=== PATIENT | female | born 2000 | race Caucasian/White ===

== ENCOUNTER → 2020-04-12 10:13 | Outpatient (CLI) | payer OTHER, BC, SELFPAY ==
[2020-04-13 07:37] LABS: Covid-19 Nasal PCR Sendout Lex NOT DETECTED
== END ==
PROVIDERS: Visit Provider Internal Medicine Adolescent Medicine
DX: Z03.818 Encounter for observation for suspected exposure to other biological agents ruled out (principal)
CPT/HCPCS: U0004

== ENCOUNTER → 2020-05-18 12:53 | Outpatient (CLI) | payer OTHER, BC, SELFPAY ==
[2020-05-18 14:26] LABS: HCG,Quantitative < 2 mIU/ml (0-5.42)
== END ==
PROVIDERS: Visit Provider Nurse Practitioner Obstetrics & Gynecology
DX: Z34.90 Encounter for supervision of normal pregnancy, unspecified, unspecified trimester (principal)
CPT/HCPCS: 36415; 84702

== ENCOUNTER → 2020-05-31 09:11 | Outpatient (CLI) | payer OTHER, BC, SELFPAY ==
[2020-05-31 10:05] LABS: HCG,Quantitative < 2 mIU/ml (0-5.42)
== END ==
PROVIDERS: Visit Provider Nurse Practitioner Obstetrics & Gynecology
DX: Z34.90 Encounter for supervision of normal pregnancy, unspecified, unspecified trimester (principal)
CPT/HCPCS: 36415; 84702

== ENCOUNTER 2020-08-13 15:59 | Emergency (ER) | payer OTHER, SELFPAY ==
[2020-08-13 16:35] VITALS: BP 162/92; PULSE 97; RESP 14; TEMP 37.2; O2SAT 97; BMI 38.7
[2020-08-13 16:43] LABS: Apearance,Urine Clear (Clear); Color,Urine Yellow (Yellow)
[2020-08-13 16:44] LABS: Bilirubin,Urine Negative (Negative); Blood, Urine Negative (Negative); Glucose,Urine (UA) Negative (Negative); Ketones,Urine Negative (Negative); Protein,Urine Negative (Negative); Specific Gravity, Urine 1.025 (1.005-1.030); UTC Leukocyte Esterase,Urine Negative (Negative); UTC Nitrate,Urine Negative (Negative); UTC Pregnancy Test, Urine Negative (Negative); Urobilinogen,Urine 1 EU/dl (0.2)
--- NOTE | 2020-08-13 16:58 | HMH.EDUTC ---
[facility] [place] Disposition Clinical Impression: Vaginal bleeding Low back pain Qualifiers: Chronicity: acute Back pain laterality: unspecified Sciatica presence: without sciatica Qualified Code(s): M54.5 - Low back pain Disposition: Home, Self-Care Condition on Discharge: Good Instructions: DI for Vaginal Bleeding Additional Instructions: Follow up with your primary care physician. Follow up with your case operator doctor. Take ibuprofen for pain. GO TO THE ER FOR ANY WORSENING SYMPTOMS, ESPECIALLY WORSENING BLEEDING Prescriptions: Ibuprofen [Ibuprofen 600mg Tablet] 600 mg PO Q6HP PRN #30 tab PRN Reason: Mild Pain Transmission Status: Received by [facility] Referrals: Francisco Ozuna MD [Primary Care Provider] - Time of Disposition: 17:17 Medical Decision Making - Medical Records Medical records reviewed: No: I reviewed the patient's medical records. - Jace Inquiry Pt receiving controlled substance: No Vital Signs: 08/13/20 16:35 08/13/20 17:21 Temperature 98.9 F 98.9 F Temperature Source Oral Pulse Rate 97 H Pulse Rate [Right Brachial] 97 H Respiratory Rate 14 14 Blood Pressure 162/92 H Blood Pressure [Right Arm] 162/92 H Blood Pressure Mean [Right Arm] 115 Blood Pressure Source [Right Arm] Automatic Cuff Blood Pressure Position [Right Arm] Sitting 02 Sat by Pulse Oximetry 97 Oxygen Delivery Method Room Air - Lab Data Lab Results 08/13/20 16:43: Urine Color Yellow, Urine Appearance Clear, Urine pH 6.0, Ur Specific [place] 1.025, Urine Protein Negative, Urine Glucose (UA) Negative, Urine Ketones Negative, Urine Blood Negative, Urine Nitrate Negative, Urine Bilirubin Negative, Urine Urobilinogen 1, Ur Leukocyte Esterase Negative, Tst Clinic Negative [facility] [place] HPI - General Stated complaint: lower back pain, spotting Time Seen by Provider: 08/13/20 16:58 - History of Present Illness Provider Complaint: She has been having low back pain for the past 1 week. She also states that she has been having some vaginal bleeding at times also. She denies that her period is due or late. The bleeding has been very mild, more like spotting. She denies any dysuria or other urinary complaints. - Related Data Previous Rx's Medication Instructions Recorded Ibuprofen [Ibuprofen 600mg 600 mg PO Q6HP PRN #30 tab 08/13/20 Tablet] Allergies Allergy/AdvReac Type Severity Reaction Status Date / Time No Known Allergies Allergy Verified 08/13/20 17:01 [facility] History - Hepatitis A Screen Attestation statement:: This patient has been screened for Hepatitis A risk factors. I have reviewed the patient's past medical history: Yes ROS Obtained: Yes All systems reviewed & no additional complaints - Constitutional Constitutional: Denies chills, Denies fever(s) - Eyes Eyes: Denies eye discharge - ENT Ears, Nose, Mouth, and Throat: Denies dizziness, Denies otalgia, Denies sore throat - Cardiovascular Cardiovascular: Denies chest pain - Respiratory Respiratory: Denies chest congestion, Denies cough - Gastrointestinal Gastrointestingal: Denies: abdominal pain, diarrhea, nausea, vomiting - Genitourinary Female Genitourinary: Denies dysuria, Denies urinary frequency, Denies urinary incontinence, Denies urinary hesitancy, Denies urinary urgency Physical Exam - General General appearance: alert, in no apparent distress - Head Head exam: atraumatic, normocephalic, normal inspection - Eye Eye exam: Present: normal appearance, PERRL, EOMI - ENT ENT exam: Present: normal exam, normal oropharynx, mucous membranes moist, TM's normal bilaterally, normal external ear exam - Neck Neck exam: Present: normal inspection, full ROM, trachea midline. Absent: meningismus, lymphadenopathy - Chest Chest inspection: Present: normal inspection, symmetric chest wall rise. Absent: tenderness - Respiratory Respiratory exam: Present: normal lung sound
[2020-08-13 17:21] VITALS: BP 162/92; PULSE 97; RESP 14; TEMP 37.2; O2SAT 97
== END 2020-08-13 17:26 | disposition home or self-care (01) ==
PROVIDERS: Emergency Provider Nurse Practitioner Family; PCP Internal Medicine Adolescent Medicine
DX: M54.5 Low back pain (principal); N93.9 Abnormal uterine and vaginal bleeding, unspecified
CPT/HCPCS: 81003; 81025; 99202; G0463

== ENCOUNTER → 2020-08-15 08:44 | Outpatient (CLI) | payer OTHER, SELFPAY ==
--- NOTE | 2020-08-15 08:58 | US_ITS ---
PROCEDURE: US TRANSVAGINAL CLINICAL INDICATION: LLQ PAIN,ABN BLEEDING Dear bleeding since Saturday, lower back pain x2 weeks COMPARISON: No exams were available for comparison FINDINGS: Patient is currently on control medication. There is minimal fluid in the cul-de-sac, unremarkable for patient age. UTERUS: Uterus is retroverted. Uterine volume is 64 cc. Endometrial thickness of up to 1 centimeter, this is within normal limits for a female of reproductive age. There is no intrauterine fluid. LEFT OVARY: 5.3cmx3.3cmx5.1cm with a volume of 46ml enlarged. There are 2 left follicular cysts, 3.9 x 2.9 by 2.9 centimeters, volume 17.5 cc; 2.6 x 1.9 x 2.2 centimeters, 6.9 cc. Cyst sinuses are within normal limits for a female of reproductive age, however follow-up ultrasound in 6 weeks could be performed if clinically indicated. RIGHT OVARY: 5.1 cmx 4.1cmx4.2cm with a volume of 46ml, enlarged. There is a polycystic appearing right ovary. IMPRESSION: Small amount of fluid in the cul-de-sac, which can be a source of pain but is normal for a female of reproductive age. No abnormal endometrial thickening or fluid. Bilateral enlarged ovaries, right ovary has a polycystic appearance. Left ovary has 2 cysts as described below. Dictated by: Janeth Salinas 08/15/2020 10:24 Janeth Salinas in [facility] 08/15/2020 10:46
[2020-08-15 09:08] LABS: Basophils % 0.6 % (0.1-2.0); Eosinophils # 0.2 K/mm3 (0.0-0.4); Eosinophils % 2.4 % (0.1-12.0); Hemoglobin 14.3 g/dL (12.2-16.2); Lymphocytes # 2.4 K/mm3 (0.7-4.5); Lymphocytes % 34.4 % (10-50); Mean Corpuscular HGB Conc 32.5 g/dL (31.8-35.4); Mean Corpuscular Hemoglobin 28.5 pg (27.0-31.2); Mean Corpuscular Volume 87.7 fl (81-99); Mean Platelet Volume 7.1 fl (7.4-10.4); Monocytes # 0.4 K/mm3 (0.1-1.0); Monocytes % 5.7 % (1.7-9.3); Neutrophils % 56.8 % (37.0-80.0); Platelet Count 289 K/mm3 (142-424); Red Blood Count 5.02 M/mm3 (4.20-5.40); Red Cell Distribution Width 13.6 % (11.5-17.5)
[2020-08-15 10:05] LABS: Chloride 104 mmol/L (98-107); Potassium 4.6 mmoL/L (3.5-5.1); Sodium 139 mmol/L (136-145)
[2020-08-15 10:06] LABS: HCG Qualitative, Serum Negative (Negative)
[2020-08-15 10:07] LABS: Blood Urea Nitrogen 13 mg/dl (7-17); Estimated Glomerular Filt Rate 127 ml/min (>60); GFR (African American) 154 ML/MIN (>60)
[2020-08-15 10:08] LABS: Alanine Aminotransferase 20 U/L (12-78); Albumin Level 4.4 g/dl (3.5-5.0); Albumin/Globulin Ratio 1.4 (1.1-1.8); Alkaline Phosphatase 48 U/L (38-126); Anion Gap 11.6 mEq/L (5-15); Aspartate Amino Transferase 23 U/L (14-36); Bilirubin,Total 0.4 mg/dl (0.2-1.3); Calcium 9.5 mg/dl (8.4-10.2); Carbon Dioxide 28 mmol/L (22.0-30.0); Globulin 3.1 g/dL (1.3-3.2); Glucose 100 mg/dl (74-100); Total Protein,Serum 7.5 g/dl (6.3-8.2)
== END ==
PROVIDERS: PCP Internal Medicine Adolescent Medicine; Visit Provider Nurse Practitioner Family
DX: R10.32 Left lower quadrant pain (principal); N93.9 Abnormal uterine and vaginal bleeding, unspecified
CPT/HCPCS: 36415; 76830; 80053; 84703; 85025

== ENCOUNTER → 2020-09-30 13:05 | Outpatient (CLI) | payer OTHER, SELFPAY ==
--- NOTE | 2020-09-30 13:05 | US_ITS ---
PROCEDURE: US TRANSVAGINAL CLINICAL INDICATION: US T/V- 6 wk f/u on left ovarian cyst COMPARISON: US US TRANSVAGINAL from 08/15/2020 FINDINGS: UTERUS: 6 x 5cmx 5cm with a combined endometrial thickness of 4.1mm LEFT OVARY: [id number] with a volume of 30ml. RIGHT OVARY: 4cmx [id number] with a volume of 20.1ml. Both ovaries demonstrate multiple cysts, largest on the left measuring 3.7 x 2.8 centimeters. Normal vascularity is noted. No free fluid in the pelvic cul-de-sac. IMPRESSION: Bilateral polycystic ovaries. Largest measuring 3.7 centimeters noted on the left. No significant interval change. Dictated by: Erica Rodney 09/30/2020 15:29 Erica Rodney in [facility] 09/30/2020 15:29
== END ==
PROVIDERS: PCP Internal Medicine Adolescent Medicine; Visit Provider Obstetrics & Gynecology
DX: N83.202 Unspecified ovarian cyst, left side (principal)
CPT/HCPCS: 76830

== ENCOUNTER → 2020-10-10 16:29 | Outpatient (CLI) | payer OTHER, SELFPAY ==
[2020-10-14 06:17] LABS: Neisseria gonorrhoeae, NAA Negative (Negative)
== END ==
PROVIDERS: Visit Provider Obstetrics & Gynecology
DX: Z83.1 Family history of other infectious and parasitic diseases (principal)
CPT/HCPCS: 87491; 87591

== ENCOUNTER → 2021-02-23 13:33 | Outpatient (CLI) | payer OTHER, SELFPAY ==
[2021-02-23 15:18] LABS: HCG,Quantitative < 2 mIU/ml (0-5.42)
== END ==
PROVIDERS: Visit Provider Obstetrics & Gynecology
DX: N92.6 Irregular menstruation, unspecified (principal)
CPT/HCPCS: 36415; 84702

== ENCOUNTER → 2021-08-21 13:14 | Outpatient (CLI) | payer OTHER, SELFPAY ==
[2021-08-21 15:02] LABS: HCG,Quantitative < 2 mIU/ml (0-5.42)
== END ==
PROVIDERS: Visit Provider Obstetrics & Gynecology
DX: Z34.90 Encounter for supervision of normal pregnancy, unspecified, unspecified trimester (principal)
CPT/HCPCS: 36415; 84702

== ENCOUNTER 2022-01-12 22:59 | Emergency (ER) | payer OTHER, SELFPAY ==
[2022-01-12 23:28] VITALS: BP 140/87; PULSE 81; RESP 18; TEMP 36.9; O2SAT 98; BMI 37.9
--- NOTE | 2022-01-12 23:33 | CT_ITS ---
PROCEDURE INFORMATION: Exam: CT Right Lower Extremity Without Contrast, Knee Exam date and time: 01/13/2022 12:04 AM Age: 21 years old Clinical indication: Injury or trauma; Other: Twisted RT knee; Sprain or strain; Patella or knee; Right; Additional info: Twisted right knee TECHNIQUE: Imaging protocol: CT of the Right lower extremity without contrast was performed. Exam focused on the knee. Radiation optimization: All CT scans at this facility use at least one of these dose optimization techniques: automated exposure control; mA and/or kV adjustment per patient size (includes targeted exams where dose is matched to clinical indication); or iterative reconstruction. COMPARISON: No relevant prior studies available. FINDINGS: Bones/joints: No acute fracture. Mild lateral patellar tilt/subluxation. No dislocation. Minimal joint effusion. Soft tissues: Unremarkable. IMPRESSION: No fracture. If pain persists, suggest MRI to evaluate for occult fracture/internal derangement.
[2022-01-12 23:51] LABS: Urine Pregnancy, HCG Qual. Negative (Negative)
--- NOTE | 2022-01-13 00:55 | HMH.EDLOEX ---
ED Disposition Clinical Impression: Patellar dislocation Qualifiers: Encounter type: initial encounter Laterality: right Qualified Code(s): S83.004A - Unspecified dislocation of right patella, initial encounter Disposition: Home, Self-Care Condition on Discharge: Good Instructions: DI for Patellar Dislocation Additional Instructions: see ortho for follow up and advil/tyenol Referrals: Francisco Ozuna MD [Primary Care Provider] - - Critical Care Critical Care Time: No Attestation: On 01/12/22, the high probability of a clinically significant, sudden or life threatening deterioration of the following system(s) required my full and direct attention, intervention and personal management. The time I documented below is in addition to time spent performing reported procedures but includes the following listed in this critical care notation. Medical Decision Making - Medical Records Medical records reviewed: Yes: I reviewed the patient's medical records. - Jace Inquiry Pt receiving controlled substance: No Vital Signs: 01/12/22 23:28 Temperature 98.4 F Temperature Source Oral Pulse Rate [Apical] 81 Respiratory Rate 18 Blood Pressure [Right Arm] 140/87 Blood Pressure Mean [Right Arm] 104 Blood Pressure Source [Right Arm] Automatic Cuff Blood Pressure Position [Right Arm] Sitting 02 Sat by Pulse Oximetry 98 Oxygen Delivery Method Room Air - Lab Data Lab results reviewed: Yes: I reviewed the patient's lab results. Lab Results 01/12/22 23:42: Urine HCG, Qual Negative - Radiology Data #1 Image(s): Knee Image Reviewed: Yes I have reviewed radiologist's interpretation Preliminary Findings: Abnormal, No Fracture Seen Medical Decision Narrative: has rt knee prob displaced platella and will need ortho Lower Extremity Injury HPI - General Chief Complaint: Extremity Injury, Lower Stated Complaint: Right knee pain, no injury Time Seen by Provider: 01/13/22 00:00 Mode of Arrival: Wheelchair Source of Information: Patient, Spouse, Medical Record Limitations: No Limitations Description of Symptoms (Recalled from ER Triage Doc. by RN): Patient c/o 8/10 right knee pain for prior hour. States she was letting her dogs out and felt as though her knee popped out of place. Per patient, she felt my knee cap go behind my knee . Denies falling. Does state that the pain radiates down into her right ankle. - History of Present Illness HPI Narrative: knee cap displaced medial and then returned to place and has pain to rt knee - no fall MD complaint: knee injury Onset (ago): day(s) Injury: Right: knee Type of Injury: hyperflexion Place: home Severity: moderate Associated symptoms: snap/pop sensation Other symptoms: none - Related Data Previous Rx's Medication Instructions Recorded norethindrone 1 mg-ethinyl 1 tab PO ONCE #28 tab 10/10/20 estradiol 10 mcg (24)-iron 10 mcg(2) tablet vits no.126-ferrous fum 1 tab PO DAILY #90 tab 08/22/21 28 mg iron-folic acid 800 mcg tablet Allergies Allergy/AdvReac Type Severity Reaction Status Date / Time No Known Allergies Allergy Verified 10/06/21 13:33 [facility] History - Hepatitis A Screen Attestation statement:: This patient has been screened for Hepatitis A risk factors. I have reviewed the patient's past medical history: Yes Other Surgeries: Yes: No Previous Surgery Amputation: No Fractures: No - Social History Smoking Status: Never smoker Alcohol Intake: never Substance Use Type: denies use Occupational Status: other Family Hx:: No significant family history ROS Obtained: Yes All systems reviewed & no additional complaints - Constitutional Constitutional: Denies fever(s) - Eyes Eyes: Denies change in vision - ENT Ears, Nose, Mouth, and Throat: Denies sore throat - Cardiovascular Cardiovascular: Denies chest pain - Respiratory Respiratory: Denies shortness of breath - Gastrointestinal Gastrointesti
[2022-01-13 01:14] VITALS: BP 138/85; PULSE 85; RESP 18; TEMP 36.9; O2SAT 98
== END 2022-01-13 01:20 | disposition home or self-care (01) ==
PROVIDERS: Emergency Provider Emergency Medicine; PCP Internal Medicine Adolescent Medicine
DX: S83.004A Unspecified dislocation of right patella, initial encounter (principal)
CPT/HCPCS: 73700; 81025; 99284

== ENCOUNTER → 2022-04-23 15:45 | Outpatient (CLI) | payer OTHER, SELFPAY ==
[2022-04-25 22:39] LABS: Neisseria gonorrhoeae, NAA Negative (Negative)
== END ==
PROVIDERS: Visit Provider Obstetrics & Gynecology
DX: Z34.90 Encounter for supervision of normal pregnancy, unspecified, unspecified trimester (principal)
CPT/HCPCS: 87491; 87591

== ENCOUNTER → 2022-06-11 16:07 | Outpatient (CLI) | payer OTHER, SELFPAY ==
[2022-06-11 17:40] LABS: Basophils # 0.1 K/mm3 (0-0.2); Basophils % 0.5 % (0.1-2.0); Eosinophils # 0.1 K/mm3 (0.0-0.4); Hematocrit 39.1 % (37.0-47.0); Lymphocytes # 1.9 K/mm3 (0.7-4.5); Lymphocytes % 19.7 % (10-50); Mean Corpuscular HGB Conc 33.2 g/dL (31.8-35.4); Mean Corpuscular Hemoglobin 28.8 pg (27.0-31.2); Mean Corpuscular Volume 86.8 fl (81-99); Mean Platelet Volume 7.6 fl (7.4-10.4); Monocytes # 0.6 K/mm3 (0.1-1.0); Monocytes % 5.7 % (1.7-9.3); Neutrophils % 73.1 % (37.0-80.0); Platelet Count 293 K/mm3 (142-424); Red Blood Count 4.51 M/mm3 (4.20-5.40); Red Cell Distribution Width 13.6 % (11.5-17.5); White Blood Count 9.6 K/mm3 (4.8-10.8)
[2022-06-13 08:16] LABS: HIV Screen 4th Generation wRfx Non Reactive (Non Reactive); Rubella Antibodies, IgG <0.90 index (Immune >0.99)
[2022-06-13 12:38] LABS: Rapid Plasma Reagin Ab Titer Non Reactive (NonRea<1:1)
[2022-06-23 23:31] LABS: Hepatitis B Surface Antigen NEGATIVE; Hepatitis C Antibody <0.1
== END ==
PROVIDERS: PCP Internal Medicine Adolescent Medicine; Visit Provider Obstetrics & Gynecology
DX: Z34.90 Encounter for supervision of normal pregnancy, unspecified, unspecified trimester (principal)
CPT/HCPCS: 36415; 85025; 86592; 86703; 86762; 86850; 87340; 87380; G0432

== ENCOUNTER → 2022-07-03 12:57 | Outpatient (CLI) | payer OTHER, SELFPAY ==
--- NOTE | 2022-07-03 12:58 | US_ITS ---
FINAL REPORT CLINICAL HISTORY: US OB Complete -Anatomy Scan FINDINGS: There is a single live intrauterine gestation. Presentation is breech. The cervix is closed and measures 3.4 cm. Placenta is posterior. movement is noted. Cardiac activity is measured at 152 beats per minute. Three-vessel cord with satisfactory umbilical cord insertion. Four-chamber heart is noted. brain and ventricles are unremarkable. Chest and diaphragm are unremarkable. ABDOMEN: Both kidneys are unremarkable. Stomach is unremarkable. SPINE: No anomalies identified. Both arms and legs noted. AMNIOTIC FLUID: Appropriate amount. MEASUREMENTS: ULTRASOUND AGE: 19 weeks 2 days. GESTATION AGE: 18 weeks 6 days. ESTIMATED WEIGHT: 278 g GROWTH PERCENTILE: 66% LMP percentile BPD: 4.4 cm corresponding with 19 weeks 3 days. OFD: 5.7 cm corresponding with 19 weeks 6 days. HC: 16.0 cm corresponding with 19 weeks 0 days. AC: 14.1 cm corresponding with 19 weeks 4 days. FL: 2.9 cm corresponding with 19 weeks 0 days. CEREBELLUM: 1.9 cm corresponding with 19 weeks 2 days. HUMERUS: 2.8 cm corresponding with 19 weeks 0 days. HC/AC: 1.14 CI: 77% FL/BPD: 65% FL/AC: 20% The left ovary is enlarged due to an adjacent cyst measuring up to 3.9 cm, suspect corpus luteal cyst. IMPRESSION: Single living IUP with an ultrasound age of 19 weeks 2 days. No gross anomalies noted. Reviewed, Interpreted and Dictated by Allan Pierce MD Transcribed by Prisca Corley Authenticated and [facility]
== END ==
PROVIDERS: PCP Internal Medicine Adolescent Medicine; Visit Provider Obstetrics & Gynecology
DX: Z34.90 Encounter for supervision of normal pregnancy, unspecified, unspecified trimester (principal); Z3A.18 18 weeks gestation of pregnancy
CPT/HCPCS: 76811

== ENCOUNTER 2022-08-01 17:54 | Outpatient (CLI) | payer OTHER, SELFPAY ==
[2022-08-01 18:05] VITALS: BMI 40.7
[2022-08-01 18:21] VITALS: BP 114/74; PULSE 92; RESP 18; TEMP 36.7; O2SAT 97; BMI 40.7
[2022-08-01 18:27] LABS: Microscopic, Urine URINE MICROSCOPIC (MICROSCOPIC)
[2022-08-01 19:01] LABS: Appearance,Urine SL CLOUDY (Clear); Bilirubin,Urine Negative (Negative); Blood, Urine Negative (Negative); Color,Urine YELLOW (Yellow); Glucose,Urine (UA) 1+ (Negative); Ketones,Urine TRACE (Negative); Leukocyte Esterase,Urine TRACE (Negative); Nitrate,Urine Negative (Negative); Protein,Urine Negative (Negative); Specific Gravity, Urine >= 1.030 (1.005-1.030); Urobilinogen,Urine 0.2 EU/dl (0.2)
[2022-08-01 19:35] LABS: Squamous Epithelial Cell,Urine Occasional #/hpf (0-5); WBC,Urine Occasional #/hpf (0-3)
[2022-08-01 21:04] LABS: Amphetamine/Metha Screen,Urine Negative ng/ml (<1000)
[2022-08-01 21:05] LABS: Barbiturates Screen,Urine Negative ng/ml (<200)
[2022-08-01 21:06] LABS: Benzodiazepines Screen,Urine Negative ng/ml (<200)
[2022-08-01 21:07] LABS: Cannabinoid Screen,Urine Negative ng/ml (<50)
[2022-08-01 21:08] LABS: Cocaine Screen,Urine Negative ng/ml (<300); Methadone Screen,Urine Negative ng/ml (<300)
[2022-08-01 21:09] LABS: Opiate Screen,Urine Negative ng/ml (<300)
[2022-08-01 21:10] LABS: Phencyclidine Screen,Urine Negative ng/ml (<25)
== END 2022-08-01 19:50 | disposition home or self-care (01) ==
LOC: OBOUT 17:55 → OB 17:56
PROVIDERS: PCP Internal Medicine Adolescent Medicine; Visit Provider Obstetrics & Gynecology
DX: O26.892 Other specified pregnancy related conditions, second trimester (principal); Z3A.23 23 weeks gestation of pregnancy; R10.32 Left lower quadrant pain
CPT/HCPCS: 80305; 81001

== ENCOUNTER 2022-08-10 17:53 | Emergency (ER) | payer OTHER, SELFPAY ==
[2022-08-10 18:06] VITALS: BP 122/77; PULSE 96; RESP 17; TEMP 36.4; O2SAT 99; BMI 40.7
--- NOTE | 2022-08-10 18:58 | HMH.EDGENADL ---
Discharge Plan Disposition Patient Disposition: Home, Self-Care Condition: Good Chief Complaint: Medical Clearance Prescriptions Prescriptions: No Action Classic 28 mg iron- 800 mcg tablet 1 tab PO DAILY Qty: 90 3RF Referrals Follow up/Referrals: Francisco Ozuna MD [Primary Care Provider] - See instructions Activity Restrictions/Add. Instructions Additional Instructions/Restrictions: Home medications/[id number] medication as directed. 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 Return to ER for fever, shortness of breath, chest pain Clinical Impressions Clinical Impression: Cough with hemoptysis, Third trimester Discharge ED Provider: Marcos Hall General Adult HPI General Chief complaint: Medical Clearance Stated complaint: coughing up blood Time Seen by Provider: 08/10/22 18:47 Mode of Arrival: Ambulatory Source of Information: Patient Limitations: No Limitations Description of Symptoms (Recalled from ER Triage Doc. by RN): Pt c/o hemoptysis episodes since AM today, starting tinged progressing to clots, with NAD nor pertinent subjective history provided, G1 History of Present Illness HPI narrative: 21yo F presents to the ER secondary to hemoptysis. Reports cough began this morning. Denies fever. 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 Denies any chronic medical issues. Reports she is at 24 weeks 2 days. uncomplicated so far. Reports normal activity. Related Data Previous Rx's Medication Instructions Recorded vits no.126-ferrous fum 1 tab PO DAILY #90 tabs 08/22/21 28 mg iron-folic acid 800 mcg tablet (Classic ) Allergies Allergy/AdvReac Type Severity Reaction Status Date / Time No Known Allergies Allergy Verified 07/23/22 08:40 [facility] Disclaimer: The information contained in this section may have been updated after the patient was seen, as this information can be updated by other users. Medical History BMI over 35 Pelvic pain in female Polycystic ovary Social History Smoking Status: Never smoker alcohol intake: never substance use type: denies use current occupational status: employed Travel in the last 8 weeks: None ROS Obtained: Yes Systems reviewed as appropriate & no additional complaints except as documented Physical Exam General General appearance: alert and in no apparent distress Head Head exam: atraumatic Chest Chest inspection: Present normal inspection Respiratory Respiratory exam: Present normal lung sounds bilaterally; Absent respiratory distress, wheezes or stridor Cardiovascular Cardiovascular exam: Present regular rate, normal rhythm and normal heart sounds Abdominal Exam Abdominal exam: Present soft Extremities Exam Extremities exam: Present normal inspection Neurological Exam Neurological exam: Present alert, oriented X3 and CN II-XII intact Psychiatric Psychiatric exam: Present normal affect Skin Skin exam: Present warm Other Other exam information: heart tones obtained by Doppler: 145 Medical Decision Making Medical Records Medical records reviewed: Yes I reviewed the patient's medical records. Jace Inquiry Pt receiving controlled substance: No Vital Signs: 08/10/22 18:06 Temperature 97.5 F L Temperature Source Oral Pulse Rate [Right Radial] 96 H Respiratory Rate 17 Blood Pressure [Right Arm] 122/77 Blood Pressure Mean [Right Arm] 92 02 Sat by Pulse Oximetry 99 Oxygen Delivery Method Room Air Medical Decision Narrative: 21yo F evaluated for hemoptysis. Patient is in no acute distress. Physical exam is benign. Differential diagnosis includes was not limited to: Viral syndrome, asthma exacerbation, pneumonia. Patient's vital signs are normal, her lung auscultation is clear, she has no fever. Does not me
[2022-08-10 19:06] VITALS: BP 109/66
[2022-08-10 19:07] VITALS: BP 109/66; PULSE 83; RESP 16; TEMP 37.1; O2SAT 100
== END 2022-08-10 19:09 | disposition home or self-care (01) ==
PROVIDERS: Emergency Provider Family Medicine; PCP Internal Medicine Adolescent Medicine
DX: O99.891 Other specified diseases and conditions complicating pregnancy (principal); R04.2 Hemoptysis; R05.9 Cough, unspecified; Z3A.24 24 weeks gestation of pregnancy
CPT/HCPCS: 99284

== ENCOUNTER → 2022-09-03 07:41 | Outpatient (CLI) | payer OTHER, SELFPAY ==
[2022-09-03 07:59] LABS: Basophils % 0.5 % (0.1-2.0); Eosinophils # 0.1 K/mm3 (0.0-0.4); Eosinophils % 0.6 % (0.1-12.0); Hematocrit 38.6 % (37.0-47.0); Lymphocytes # 1.2 K/mm3 (0.7-4.5); Lymphocytes % 13.9 % (10-50); Mean Corpuscular HGB Conc 33.7 g/dL (31.8-35.4); Mean Corpuscular Hemoglobin 29.5 pg (27.0-31.2); Mean Corpuscular Volume 87.6 fl (81-99); Mean Platelet Volume 8.5 fl (7.4-10.4); Monocytes # 0.7 K/mm3 (0.1-1.0); Monocytes % 8.2 % (1.7-9.3); Neutrophils # 6.4 K/mm3 (1.8-7.8); Neutrophils % 76.8 % (37.0-80.0); Platelet Count 232 K/mm3 (142-424); Red Blood Count 4.41 M/mm3 (4.20-5.40); Red Cell Distribution Width 14.5 % (11.5-17.5); White Blood Count 8.4 K/mm3 (4.8-10.8)
[2022-09-03 08:28] LABS: Glucose,Fasting 112 mg/dl (74-100)
[2022-09-03 09:49] LABS: Glucose 1 Hour 149 mg/dL (74-100)
== END ==
PROVIDERS: PCP Internal Medicine Adolescent Medicine; Visit Provider Obstetrics & Gynecology
DX: Z34.90 Encounter for supervision of normal pregnancy, unspecified, unspecified trimester (principal)
CPT/HCPCS: 36415; 82951; 85025

== ENCOUNTER → 2022-09-08 08:05 | Outpatient (CLI) | payer OTHER, SELFPAY ==
[2022-09-08 08:39] LABS: Glucose,Fasting 106 mg/dl (74-100)
[2022-09-08 10:26] LABS: Glucose 1 Hour 143 mg/dL (74-100)
[2022-09-08 11:27] LABS: Glucose 2 Hour 112 mg/dL (74-100)
[2022-09-08 12:42] LABS: Glucose 3 Hour 66 mg/dL (74-100)
== END ==
PROVIDERS: PCP Internal Medicine Adolescent Medicine; Visit Provider Obstetrics & Gynecology
DX: Z34.90 Encounter for supervision of normal pregnancy, unspecified, unspecified trimester (principal); Z3A.27 27 weeks gestation of pregnancy
CPT/HCPCS: 82951

== ENCOUNTER 2022-10-08 05:33 | Outpatient (CLI) | payer OTHER, SELFPAY ==
[2022-10-08 05:42] VITALS: BMI 43.6
[2022-10-08 06:11] LABS: Microscopic, Urine URINE MICROSCOPIC (MICROSCOPIC)
[2022-10-08 06:13] LABS: Appearance,Urine CLEAR (Clear); Bilirubin,Urine Negative (Negative); Blood, Urine Negative (Negative); Color,Urine YELLOW (Yellow); Glucose,Urine (UA) Negative (Negative); Ketones,Urine Negative (Negative); Leukocyte Esterase,Urine 1+ (Negative); Nitrate,Urine Negative (Negative); Protein,Urine Negative (Negative); Urobilinogen,Urine 0.2 EU/dl (0.2)
[2022-10-08 06:19] VITALS: BP 118/85; PULSE 99; RESP 18; TEMP 36.5; O2SAT 97; BMI 43.6
[2022-10-08 06:21] LABS: Fetal Membrane Rupture (Rapid) Negative (Negative)
[2022-10-08 06:25] LABS: Barbiturates Screen,Urine Negative ng/ml (<200); Benzodiazepines Screen,Urine Negative ng/ml (<200)
[2022-10-08 06:26] LABS: Amphetamine/Metha Screen,Urine Negative ng/ml (<1000)
[2022-10-08 06:27] LABS: Cannabinoid Screen,Urine Negative ng/ml (<50); Cocaine Screen,Urine Negative ng/ml (<300)
[2022-10-08 06:28] LABS: Methadone Screen,Urine Negative ng/ml (<300)
[2022-10-08 06:29] LABS: Opiate Screen,Urine Negative ng/ml (<300); Phencyclidine Screen,Urine Negative ng/ml (<25)
[2022-10-08 06:48] LABS: Bacteria,Urine Trace /lpf; RBC,Urine Occasional #/hpf (0-3); Squamous Epithelial Cell,Urine Occasional #/hpf (0-5)
== END 2022-10-08 06:55 | disposition home or self-care (01) ==
LOC: OBOUT 05:36 → OB 05:42
PROVIDERS: PCP Internal Medicine Adolescent Medicine; Referring Provider Obstetrics & Gynecology; Visit Provider Obstetrics & Gynecology
DX: O26.893 Other specified pregnancy related conditions, third trimester (principal); Z3A.32 32 weeks gestation of pregnancy
CPT/HCPCS: 80305; 81001; 84112; 87086

== ENCOUNTER → 2022-10-25 09:50 | Outpatient (CLI) | payer OTHER, SELFPAY ==
--- NOTE | 2022-10-25 09:50 | US_ITS ---
FINAL REPORT CLINICAL HISTORY: lga FINDINGS: There is a single live intrauterine gestation. Presentation is breech. The cervix is closed and measures 5.6 cm. The placenta is posterior, grade 3. Cardiac activity is confirmed at 158 bpm. SEAN is normal at 12 cm. BREATHIN MOVEMENT: 2 TONE: 2 FLUID VOLUME: 2 BPP SCORE: 8 IMPRESSION: Single living IUP with a gestational age of 37 weeks 1 day. Reviewed, Interpreted and Dictated by Jeff Banuelos III, MD Transcribed by June Bundy Authenticated and [facility]
== END ==
PROVIDERS: PCP Internal Medicine Adolescent Medicine; Visit Provider Obstetrics & Gynecology
DX: O36.60X0 Maternal care for excessive fetal growth, unspecified trimester, not applicable or unspecified (principal)
CPT/HCPCS: 76816; 76819; 76820

== ENCOUNTER → 2022-11-01 08:30 | Outpatient (CLI) | payer OTHER, SELFPAY | PROVIDERS: Visit Provider Obstetrics & Gynecology | DX: Z34.90 Encounter for supervision of normal pregnancy, unspecified, unspecified trimester (principal) | CPT/HCPCS: 86403 ==

== ENCOUNTER 2022-11-03 22:01 | Outpatient (CLI) | payer OTHER, SELFPAY ==
[2022-11-03] VITALS (7 sets, daily range): BP systolic 108–130; BP diastolic 71–79; PULSE 101–117; RESP 18; TEMP 36.6; O2SAT 96; BMI 45.7
[2022-11-03 23:03] LABS: Microscopic, Urine URINE MICROSCOPIC (MICROSCOPIC)
[2022-11-03 23:06] LABS: Appearance,Urine CLEAR (Clear); Bilirubin,Urine Negative (Negative); Blood, Urine Negative (Negative); Color,Urine YELLOW (Yellow); Glucose,Urine (UA) 1+ (Negative); Ketones,Urine TRACE (Negative); Leukocyte Esterase,Urine TRACE (Negative); Nitrate,Urine Negative (Negative); Protein,Urine TRACE (Negative); Specific Gravity, Urine >= 1.030 (1.005-1.030)
[2022-11-03 23:12] LABS: Basophils % 0.2 % (0.1-2.0); Eosinophils # 0.1 K/mm3 (0.0-0.4); Eosinophils % 0.6 % (0.1-12.0); Hematocrit 37.8 % (37.0-47.0); Hemoglobin 12.7 g/dL (12.2-16.2); Lymphocytes # 2.1 K/mm3 (0.7-4.5); Lymphocytes % 22.7 % (10-50); Mean Corpuscular HGB Conc 33.7 g/dL (31.8-35.4); Mean Corpuscular Hemoglobin 28.9 pg (27.0-31.2); Mean Corpuscular Volume 85.8 fl (81-99); Mean Platelet Volume 8.5 fl (7.4-10.4); Monocytes # 0.8 K/mm3 (0.1-1.0); Monocytes % 8.6 % (1.7-9.3); Neutrophils # 6.1 K/mm3 (1.8-7.8); Platelet Count 205 K/mm3 (142-424); Red Cell Distribution Width 14.5 % (11.5-17.5)
[2022-11-03 23:17] LABS: Benzodiazepines Screen,Urine Negative ng/ml (<200)
[2022-11-03 23:18] LABS: Amphetamine/Metha Screen,Urine Negative ng/ml (<1000); Barbiturates Screen,Urine Negative ng/ml (<200)
[2022-11-03 23:19] LABS: Cannabinoid Screen,Urine Negative ng/ml (<50); Cocaine Screen,Urine Negative ng/ml (<300)
[2022-11-03 23:20] LABS: Bacteria,Urine 2+ /lpf; Methadone Screen,Urine Negative ng/ml (<300); RBC,Urine Occasional #/hpf (0-3); Squamous Epithelial Cell,Urine 20-50 #/hpf (0-5); WBC,Urine 20-50 #/hpf (0-3)
[2022-11-03 23:21] LABS: Alanine Aminotransferase 21 U/L (12-78); Aspartate Amino Transferase 32 U/L (14-36); Blood Urea Nitrogen 11 mg/dl (7-17); Calcium 8.3 mg/dl (8.4-10.2); Carbon Dioxide 19 mmol/L (22.0-30.0); Chloride 109 mmol/L (98-107); Creatinine Clearance Estimated 157 mL/min (50-200); Estimated Glomerular Filt Rate 153 ml/min (>60); GFR (African American) 185 ML/MIN (>60); Glucose 140 mg/dl (74-100); Potassium 3.6 mmoL/L (3.5-5.1); Uric Acid 4.1 mg/dl (2.5-6.2)
[2022-11-03 23:21] LABS: Opiate Screen,Urine Negative ng/ml (<300)
[2022-11-03 23:22] LABS: Phencyclidine Screen,Urine Negative ng/ml (<25)
[2022-11-03 23:23] LABS: Activated Partial Thrombo Time 24.5 seconds (22.8-30.6); Fibrinogen 403 mg/dL (229.9-363.5); Prothrombin Time 9.8 seconds (10.1-12.5)
[2022-11-03 23:29] LABS: Anion Gap 13.6 mEq/L (5-15); Sodium 138 mmol/L (136-145)
[2022-11-03 23:39] LABS: D-Dimer 1.16 ug/mL (0.0-0.5)
== END 2022-11-04 00:10 | disposition home or self-care (01) ==
LOC: OBOUT 22:03 → OB 22:03
PROVIDERS: PCP Internal Medicine Adolescent Medicine; Referring Provider Obstetrics & Gynecology; Visit Provider Obstetrics & Gynecology
DX: O13.3 Gestational [pregnancy-induced] hypertension without significant proteinuria, third trimester (principal); Z3A.36 36 weeks gestation of pregnancy
CPT/HCPCS: 59025; 80048; 80305; 81001; 84450; 84460; 84550; 85025; 85378; 85384; 85610; 85730; 87086; G0463

== ENCOUNTER → 2022-11-05 07:52 | Outpatient (CLI) | payer OTHER, SELFPAY ==
[2022-11-05 08:23] LABS: Collection Time,Urine 24 hours; Total Volume,Urine 2850 mL (600-1600)
[2022-11-05 08:24] LABS: Creatinine 24 Hour,Urine 1853 mg/24hr (630-2500); Creatinine,Urine Random 65 mg/dL (Not Estab.); Patient Height,Urine 65 inches; Patient Weight,Urine 267 lbs; Total Protein 24 Hour,Urine 171 mg/24 hr (40-90)
[2022-11-05 09:23] LABS: Creatinine Clearance Urine 256.9 mL/min (25-115)
== END ==
PROVIDERS: PCP Internal Medicine Adolescent Medicine; Visit Provider Obstetrics & Gynecology
DX: Z34.90 Encounter for supervision of normal pregnancy, unspecified, unspecified trimester (principal)
CPT/HCPCS: 36415; 82575; 84155

== ENCOUNTER 2022-11-07 14:54 | Inpatient (IN) | payer OTHER, SELFPAY ==
[2022-11-07 15:20] VITALS: BMI 45.9
[2022-11-07 15:26] VITALS: BMI 45.9
[2022-11-07 16:24] LABS: Coronavirus 19, PCR Not Detected (NotDetected); Influenza A, PCR Not Detected (NotDetected); Influenza B, PCR Not Detected (NotDetected)
[2022-11-07 16:24] LABS: Microscopic, Urine URINE MICROSCOPIC (MICROSCOPIC)
[2022-11-07 16:37] LABS: Basophils % 0.2 % (0.1-2.0); Eosinophils # 0.1 K/mm3 (0.0-0.4); Eosinophils % 0.6 % (0.1-12.0); Hematocrit 39.4 % (37.0-47.0); Hemoglobin 13.1 g/dL (12.2-16.2); Lymphocytes # 1.8 K/mm3 (0.7-4.5); Lymphocytes % 19.2 % (10-50); Mean Corpuscular HGB Conc 33.3 g/dL (31.8-35.4); Mean Corpuscular Hemoglobin 28.3 pg (27.0-31.2); Mean Corpuscular Volume 84.9 fl (81-99); Mean Platelet Volume 8.6 fl (7.4-10.4); Monocytes # 0.7 K/mm3 (0.1-1.0); Monocytes % 6.8 % (1.7-9.3); Neutrophils % 73.2 % (37.0-80.0); Platelet Count 230 K/mm3 (142-424); Red Blood Count 4.64 M/mm3 (4.20-5.40); Red Cell Distribution Width 14.6 % (11.5-17.5); White Blood Count 9.6 K/mm3 (4.8-10.8)
[2022-11-07 16:38] LABS: Chloride 102 mmol/L (98-107); Potassium 3.8 mmoL/L (3.5-5.1); Sodium 135 mmol/L (136-145)
[2022-11-07 16:40] LABS: Appearance,Urine CLEAR (Clear); Bilirubin,Urine Negative (Negative); Blood, Urine Negative (Negative); Color,Urine YELLOW (Yellow); Glucose,Urine (UA) Negative (Negative); Ketones,Urine Negative (Negative); Leukocyte Esterase,Urine 1+ (Negative); Nitrate,Urine Negative (Negative); Protein,Urine Negative (Negative); Specific Gravity, Urine 1.025 (1.005-1.030); Urobilinogen,Urine 0.2 EU/dl (0.2)
[2022-11-07 16:41] LABS: Alanine Aminotransferase 27 U/L (12-78); Albumin Level 3.1 g/dl (3.5-5.0); Albumin/Globulin Ratio 1.1 (1.1-1.8); Alkaline Phosphatase 149 U/L (38-126); Anion Gap 18.8 mEq/L (5-15); Aspartate Amino Transferase 47 U/L (14-36); Blood Urea Nitrogen 9 mg/dl (7-17); Carbon Dioxide 18 mmol/L (22.0-30.0); Creatinine Clearance Estimated 157 mL/min (50-200); Estimated Glomerular Filt Rate 153 ml/min (>60); GFR (African American) 185 ML/MIN (>60); Globulin 2.9 g/dL (1.3-3.2)
[2022-11-07 16:42] LABS: Calcium 8.8 mg/dl (8.4-10.2); Glucose 159 mg/dl (74-100)
[2022-11-07 16:52] LABS: Bilirubin,Total 0.1 mg/dl (0.2-1.3)
[2022-11-07 17:03] LABS: Bacteria,Urine 2+ /lpf
[2022-11-07 17:05] LABS: Barbiturates Screen,Urine Negative ng/ml (<200); Benzodiazepines Screen,Urine Negative ng/ml (<200)
[2022-11-07 17:06] LABS: Amphetamine/Metha Screen,Urine Negative ng/ml (<1000); Cannabinoid Screen,Urine Negative ng/ml (<50)
[2022-11-07 17:07] LABS: Cocaine Screen,Urine Negative ng/ml (<300)
[2022-11-07 17:08] LABS: Methadone Screen,Urine Negative ng/ml (<300); Opiate Screen,Urine Negative ng/ml (<300)
[2022-11-07 17:09] LABS: Phencyclidine Screen,Urine Negative ng/ml (<25)
[2022-11-07 19:32] VITALS: BP 133/84; PULSE 101; RESP 17; TEMP 36.6; O2SAT 96
[2022-11-08] VITALS (7 sets, daily range): BP systolic 139–160; BP diastolic 80–103; PULSE 93–117; RESP 11–20; TEMP 36.6–37.1; O2SAT 98–99
--- NOTE | 2022-11-08 13:51 | EXP.HP ---
History of Present Illness *Admission Date: 11/08/22 *Reason for visit:: Induction of Labor *History of present illness: 22 yo G1 @ 37 07/07 admitted for induction of labor care at [facility]-- Dr. Nicholas GIBSON 11/28/22; dating by 8 week ultrasound not equal to LMP complicated by gestational hypertension She did complain of some headaches and visual changes, but 24 hr urine only 127mg protein Cervix was unfavorable (1/thick) but estimated weight also in 93% and she has had unstable lie with breech presentation the week before, so delivery was recommended She was counseled about the potential increased risk of c section associated with induction of unfavorable cervix also complicated by failed 1hr GTT (149) with normal 3hr GTT, Obesity (BMI 46) and RNI maternal status [facility] Disclaimer: The information contained in this section may have been updated after the patient was seen, as this information can be updated by other users. Medical History BMI over 35 Pelvic pain in female Polycystic ovary Right Family History Other Diabetes Social History (Updated 11/07/22 @ 16:37 by Doris Jernigan RN) Smoking Status: Never smoker alcohol intake: never substance use type: denies use current occupational status: employed Travel in the last 8 weeks: None Review of Systems Constitutional Constitutional: Reports system reviewed and no additional complaints, except as documented and Denies headache(s) ENT Ears, Nose, Mouth, and Throat: Denies headache(s) *Genitourinary Genitourinary: Denies abnormal vaginal bleeding *Neurologic Neurologic: Denies headache(s) and Denies other visual disturbances Meds Home Medications and Allergies Home Medications Medication Instructions Recorded Confirmed Type vits no.126-ferrous fum 1 tab PO DAILY Supplement 11/07/22 11/07/22 History 28 mg iron-folic acid 800 mcg tablet (Classic ) New Prescriptions to Start Prescriptions: Allergies Allergy/AdvReac Type Severity Reaction Status Date / Time No Known Allergies Allergy Verified 11/06/22 08:27 Exam Data for Last 24 hours Vital signs and Labs for Last 24 Hours: Temp Pulse Resp BP Pulse Ox 97.9 F 93 H 17 154/80 H 98 11/08/22 04:03 11/08/22 04:03 11/08/22 04:03 11/08/22 04:03 11/08/22 04:03 Laboratory Results - last 24 hr 11/07/22 15:49: SARS-CoV-2 (PCR) Not detected, Influenza A Untype (PCR) Not detected, Influenza Type B (PCR) Not detected 11/07/22 16:06: Blood Type A Positive, Antibody Screen Negative 11/07/22 16:06: WBC 9.6, RBC 4.64, Hgb 13.1, Hct 39.4, MCV 84.9, MCH 28.3, MCHC 33.3, RDW 14.6, Plt Count 230, MPV 8.6, Neut % (Auto) 73.2, Lymph % (Auto) 19.2, [place] % (Auto) 6.8, Eos % (Auto) 0.6, Baso % (Auto) 0.2, Neut # (Auto) 7.0, Lymph # (Auto) 1.8, [place] # (Auto) 0.7, Eos # (Auto) 0.1, Baso # (Auto) 0.0 11/07/22 16:06: Urine Color Yellow, Urine Appearance Clear, Urine pH 6.0, Ur Specific [place] 1.025, Urine Protein Negative, Urine Glucose (UA) Negative, Urine Ketones Negative, Urine Blood Negative, Urine Nitrate Negative, Urine Bilirubin Negative, Urine Urobilinogen 0.2, Ur Leukocyte Esterase 1+ A, Urine RBC None, Urine WBC 3-5, Ur Squamous Epith Cells 5-10, Urine Bacteria 2+ 11/07/22 16:06: Urine Opiates Screen Negative, Urine Methadone Screen Negative, Ur Barbituates Screen Negative, Ur Phencyclidine Scrn Negative, Ur Amphetamines Screen Negative, U Benzodiazepines Scrn Negative, Urine Cocaine Screen Negative, U Marijuana (THC) Screen Negative 11/07/22 16:06: Sodium 135 L, Potassium 3.8, Chloride 102, Carbon Dioxide 18 L, Anion Gap 18.8 H, BUN 9, Creatinine 0.50 L, Estimated Creat Clear 157, Estimated GFR 153, Est GFR ( Amer) 185, Glucose 159 H, Calcium 8.8, Total Bilirubin 0.1 L, AST 47 H, ALT 27, Alkaline Phosphatase 149 H, Total Protein 6.
--- NOTE | 2022-11-08 14:11 | P.PN_ITS ---
[facility] Disclaimer: The information contained in this section may have been updated after the patient was seen, as this information can be updated by other users. Medical History BMI over 35 Pelvic pain in female Polycystic ovary Right Family History Other Diabetes Social History (Updated 11/07/22 @ 16:37 by Doris Jernigan RN) Smoking Status: Never smoker alcohol intake: never substance use type: denies use current occupational status: employed Travel in the last 8 weeks: None [facility] Anesthesia Checklist Patient Identification Patient Identification: Arm Band and Verbal (Name & ) Structural Data Admitted From: Inpatient Planned Operative Procedure/s: ELA Verified Documents: Surgical Consent Chart Verification Results Verified: CBC Airway Assessment C-Spine Mobility Assessed: Yes TMJ Mobility Assessed: Yes Dentition: Good Dentition Neurological Assessment Level of Consciousness: Awake, Alert and Appropriate Anesthesia Plan Anesthesia Risk discussed: Yes ASA Class: II Anesthesia Type: Epidural
[2022-11-08 17:34] LABS: Cord Blood PH 7.35 (7.35-7.45)
--- NOTE | 2022-11-08 17:47 | SUR.OPER ---
1725- TOB of viable male . Ph-7.35
--- NOTE | 2022-11-08 18:29 | P.OP_ITS ---
Date of procedure: 11/08/22 Pre-op Diagnosis:: 1. 38 07/07 2. GHTN 3. macrosomia 4. Failed induction of labor Post-op Diagnosis:: same Procedure performed:: 1. Primary Low Transverse C Section 2. Peritoneal biopsy Surgeon:: Minda Peterson MD Yard Crane Operator(s):: Serina Draper MD FORKLIFT TRUCK MECHANIC:: Deshawn Kaplan Anesthesia: epidural Estimated blood loss (mL): 1,000 Operative findings:: Male in vertex presentation Nuchal cord x 1 Vesicular lesions on the surface of vesico-uterine peritoneum Operative note:: The patient was taken to the OR and adequate epidural anesthesis was confirmed. She was prepped and draped in normal sterile fashion. A pfannenstiel skin incision was made with the scalpel 2cm above the pubic symphysis and carried down to the fascia. The fascia was incised in the midline and sharply dissected off the rectus muscles. The muscles were in the midline and the peritoneum was entered sharply and extended bluntly. The Erik-O self retai nato retractor was placed in the abdomen and a bladder flap was created. The vesico-uterine peritoneum had a large amount of clear vesicular lesions that appeared consistent with endometriosis. A small section (1x1cm) of the bladder flap was excised for tissue confirmation and sent for pathology. The uterus was incised in the lower uterine segment in a transverse fashion and extended bluntly. The was delivered in controlled fashion, without complication or shoulder dystocia. A nuchal cord x 1 was reduced at time of delivery. The infant was vigorous at and handed to awaiting early head start teacher for evaluation after cord clamped and cut. Cord blood was collected and a cord segment was preserved. The placenta was manually extracted and noted to be intact. The uterus was repaired in two layers with 0-vicryl in a running/locked fashion. The peritoneum was closed with 2-0 vicryl in a running fashion. The fascia was closed with #1 vicryl in a running fashion. The subcutaneous fat was closed with 2-0 vicryl in an interrupted fashion. The skin was closed with 2-0 Stratafix in a subcuticular fashion. The patient tolerated the procedure well. EBL 1000cc. Sponge, lap, needle and instrument counts were correct x 2. TAP block was placed by anesthesia after conclusion of procedure. She was taken to PACU awake and in stable condition. Condition: stable Disposition: PACU Specimens:: peritoneal biopsy Complications:: none
--- NOTE | 2022-11-08 18:31 | P.PNANES_ITS ---
[facility] Anesthesia Record Part I Anesthesia Record I Intake, IV Amount: 1,500 Estimated blood loss (mL): 1,000 Urine output (mL): 200 Blood Pressure: 155/103 SaO2: 99 Pulse Rate: 117 Respiratory Rate: 11 Temperature: 98.8 F Patient is:: Drowsy and Stable Stable to PACU at:: 18:41
--- NOTE | 2022-11-08 19:11 | SUR.PHASEI ---
1900- detailed report called to sheela weller 1902- pt left in stable condition with sheela weller in pt room. VSS, dressings CDI and janee confirmed fundus placement at this time,
[2022-11-09 01:04] VITALS: RESP 18
[2022-11-09 04:00] VITALS: BP 129/64; PULSE 112; RESP 17; TEMP 37.5; O2SAT 97
--- NOTE | 2022-11-09 07:17 | P.PNANES_ITS ---
[facility] Anesthesia Record Part II Anesthesia Record Part II Discharge Time: 19:01 Destination: Obstetric Gynecology Dept PACU nurse assessment reviewed?: Yes Patient Condition:: Good Anesthesia Complications:: None Swallowing reflex intact?: Yes Cyanosis?: No Blood Pressure: 159/90 Pulse Rate: 105 Temperature: 98.3 F Mental Status: Alert & Oriented Pain level:: 0 Nausea and/or vomitting:: None Intake, IV Amount: 0
[2022-11-09 07:18] VITALS: BP 159/90; PULSE 105; TEMP 36.8
[2022-11-09 07:27] LABS: Basophils % 0.2 % (0.1-2.0); Eosinophils % 0.1 % (0.1-12.0); Hematocrit 33.7 % (37.0-47.0); Hemoglobin 11.4 g/dL (12.2-16.2); Lymphocytes # 1.8 K/mm3 (0.7-4.5); Lymphocytes % 12.1 % (10-50); Mean Corpuscular HGB Conc 33.7 g/dL (31.8-35.4); Mean Platelet Volume 8.9 fl (7.4-10.4); Monocytes # 1.3 K/mm3 (0.1-1.0); Neutrophils # 11.4 K/mm3 (1.8-7.8); Neutrophils % 78.7 % (37.0-80.0); Platelet Count 215 K/mm3 (142-424); Red Blood Count 3.92 M/mm3 (4.20-5.40); Red Cell Distribution Width 14.9 % (11.5-17.5); White Blood Count 14.5 K/mm3 (4.8-10.8)
[2022-11-09 08:20] VITALS: BP 132/73; PULSE 109; RESP 20; TEMP 37.3; O2SAT 97
--- NOTE | 2022-11-09 10:22 | EXP.ACUTE.PN ---
Subjective *Date: 11/09/22 *Time: 10:22 Interval history: /Postop day #1 Primary CS She is doing well and has no unusual complaints She is ambulating and voiding without difficulty She is tolerating a regular diet Lochia is small and pain control sufficient hgb is 11.4 today Medical Exam Vital signs and Labs for Last 24 Hours: Vital Signs Temp Pulse Pulse Resp BP BP Pulse Ox 11/09/22 08:20 99.2 F 109 H 20 132/73 97 11/09/22 04:00 99.5 F 112 H 17 129/64 97 11/09/22 01:04 18 11/08/22 19:32 17 11/08/22 19:01 98.3 F 105 H 20 159/90 H 99 11/08/22 18:51 106 H 20 160/94 H 99 11/08/22 18:41 108 H 20 150/81 H 99 11/08/22 18:31 98.8 F 117 H 12 139/90 99 11/09/22 07:18 98.3 F 105 H 159/90 H 11/08/22 18:32 98.8 F 117 H 11 L 155/103 H Intake and Output 11/09/22 11/09/22 11/09/22 03:59 11:59 19:59 Intake Total 0 / 1500 Output Total 700 / 900 200 / 900 Balance -700 / 600 -200 / 600 Intake: Intake, Total IV Amount 0 / 1500 Output: Output, Urine Amount 700 / 900 200 / 900 Laboratory Results - last 24 hr 11/07/22 16:06: Blood Type A Positive, Antibody Screen Negative, Crossmatch (AHG) See Detail 11/08/22 17:31: Cord ABG pH 7.35 11/09/22 07:02: WBC 14.5 H D, RBC 3.92 L, Hgb 11.4 L, Hct 33.7 L, MCV 86.0, MCH 29.0, MCHC 33.7, RDW 14.9, Plt Count 215, MPV 8.9, Neut % (Auto) 78.7, Lymph % (Auto) 12.1, [place] % (Auto) 9.0, Eos % (Auto) 0.1, Baso % (Auto) 0.2, Neut # (Auto) 11.4 H, Lymph # (Auto) 1.8, [place] # (Auto) 1.3 H, Eos # (Auto) 0.0, Baso # (Auto) 0.0 I & O for Labs for Last 24 Hours: Intake & Output 11/07/22 11/08/22 11/09/22 11/10/22 11:59 11:59 11:59 11:59 Intake Total 1500 / 1500 Output Total 900 / 900 Balance 600 / 600 Weight 276 lb Microbiology Reports for the Last 24 Hours: Microbiology 11/07/22 16:06 Urine,Clean Catch Urine Culture - Final Multiple organisms, suggests contamination. Comment:: No acute distress Comment:: breathing unlabored Comment:: Regular rate, normal peripheral pulses Comments:: abdomen soft, non-distended Mild tenderness Comment:: uterine fundus firm below umbilicus Comment:: 1+ edema bilateral lower extremities Comment:: Incision dry/intact Assessment and Plan *Assessment and plan (1) 37 weeks gestation of : Status: Acute Category: Medical Code(s): Z3A.37 - 37 weeks gestation of (2) Hypertension affecting in third trimester: Status: Acute Category: Medical Code(s): O16.3 - Unspecified maternal hypertension, third trimester (3) Macrosomia affecting management of mother in third trimester: Status: Acute Category: Medical Code(s): O36.63X0 - Maternal care for excessive growth, third trimester, not applicable or unspecified (4) Rubella non-immune status, antepartum: Status: Acute Category: Medical Code(s): O09.899 - Supervision of other high risk pregnancies, unspecified trimester; Z28.39 - Other underimmunization status (5) Obesity affecting : Status: Acute Category: Medical Code(s): O99.210 - Obesity complicating , unspecified trimester (6) Delivered by section: Status: Acute Category: Medical Code(s): Z38.01 - Single liveborn infant, delivered by Plan Routine postop care Advance care as tolerated Possible discharge home tomorrow if okay with peds
[2022-11-09 15:55] VITALS: BP 120/81; PULSE 108; RESP 20; TEMP 36.8; O2SAT 95
[2022-11-09 20:09] VITALS: BP 130/70; PULSE 110; RESP 18; TEMP 36.9; O2SAT 98
[2022-11-10 04:08] VITALS: BP 132/80; PULSE 101; RESP 18; TEMP 36.6; O2SAT 99
[2022-11-10 08:00] VITALS: BP 133/70; PULSE 96; RESP 18; TEMP 36.8; O2SAT 97
--- NOTE | 2022-11-10 13:02 | EXP.DC.SUM ---
General Admission date:: 11/07/22 HPI HPI HPI: 22 yo G1 @ 37 07/07 admitted for induction of labor care at [facility]-- Dr. Peterson ARTHUR 11/28/22; dating by 8 week ultrasound not equal to LMP complicated by gestational hypertension She did complain of some headaches and visual changes, but 24 hr urine only 127mg protein Cervix was unfavorable (1/thick) but estimated weight also in 93% and she has had unstable lie with breech presentation the week before, so delivery was recommended She was counseled about the potential increased risk of c section associated with induction of unfavorable cervix also complicated by failed 1hr GTT (149) with normal 3hr GTT, Obesity (BMI 46) and RNI maternal status Hospital Course Hospital Course Hospital Course: Delivery via primary CS for failure to progress in labor with macrosomia course uncomplicated She is discharged home on PPD #2 in stable condition She is ambulating and voiding without difficulty She is tolerating a regular diet She is asymptomatic with [id number] anemia and lochia is appropriate She was given MMR vaccine prior to discharge Exam Data for Last 24 hours Vital signs and Labs for Last 24 Hours: Temp Pulse Resp BP Pulse Ox 98.2 F 96 H 18 133/70 97 11/10/22 08:00 11/10/22 08:00 11/10/22 08:00 11/10/22 08:00 11/10/22 08:00 I & O for Last 24 hours: Intake & Output 11/08/22 11/09/22 11/10/22 11/11/22 11:59 11:59 11:59 11:59 Intake Total 1500 / 1500 Output Total 900 / 900 Balance 600 / 600 Weight 276 lb Constitutional Constitutional: no acute distress *Routine HEENT Exam Head: Present normocephalic Eye: Absent conjunctival icterus or scleral injection ENT: Present mucous membranes moist *Routine Neck Exam Neck: Present supple *Routine Respiratory Exam Respiratory: Present CTA bilaterally *Routine Cardiovascular Exam Cardiovascular: Present RRR *Routine Abdominal Exam Abdominal: Present soft; Absent tenderness or distended *Routine Rectal Exam Patient deferred: visual exam and digital exam *Routine Exam Patient deferred: external exam Comments: Fundus firm below umbilicus *Routine Extremities Exam Extremities: Present edema *Routine Skin Exam Skin: Present intact and dry Comments: Incision intact without erythema or purulent drainage *Routine Neurological Exam Neurological: Present alert and oriented X3 Routine Psychiatric Exam Psychiatric: Present normal affect; Absent depressed DS: Diagnosis Discharge Diagnosis (1) 37 weeks gestation of : Status: Acute (2) Hypertension affecting in third trimester: Status: Acute (3) Macrosomia affecting management of mother in third trimester: Status: Acute (4) Rubella non-immune status, antepartum: Status: Acute (5) Obesity affecting : Status: Acute (6) Delivered by section: Status: Acute Meds Home Medications and Allergies Home Medications Medication Instructions Recorded Confirmed Type vits no.126-ferrous fum 1 tab PO DAILY Supplement 11/07/22 11/07/22 History 28 mg iron-folic acid 800 mcg tablet (Classic ) ibuprofen 400 mg tablet 800 mg PO Q6HP PRN Mild To 11/10/22 Rx Moderate Pain #30 tabs oxycodone 5 mg tablet 10 mg PO Q4HP PRN Moderate To 11/10/22 Rx Severe Pain #24 tabs New Prescriptions to Start Prescriptions: Minda Anthony oxycodone Minda Peterson Allergies Allergy/AdvReac Type Severity Reaction Status Date / Time No Known Allergies Allergy Verified 11/06/22 08:27 Discharge Plan Disposition Patient Disposition: Home, Self-Care Discharge Order Discharge Orders: Discharge Order (Routine); Ordered 11/10/22 Ordered By: Minda Peterson Follow up Plan Prescriptions/Medication Reconciliation: New ibuprofen 400 mg Tablet
== END 2022-11-10 14:26 | disposition home or self-care (01) | DRG 788 ==
PROVIDERS: Admitting Provider Obstetrics & Gynecology; PCP Internal Medicine Adolescent Medicine; Visit Provider Obstetrics & Gynecology
PROC: 10D00Z1 Extraction of Products of Conception, Low, Open Approach (ICD-10-PCS; CPT 59514; principal; 2022-11-08 16:30)
DX: O13.4 Gestational [pregnancy-induced] hypertension without significant proteinuria, complicating childbirth (principal); Z3A.37 37 weeks gestation of pregnancy; O36.63X0 Maternal care for excessive fetal growth, third trimester, not applicable or unspecified; Z23 Encounter for immunization; Z37.0 Single live birth; O69.81X0 Labor and delivery complicated by cord around neck, without compression, not applicable or unspecified; O32.0XX0 Maternal care for unstable lie, not applicable or unspecified; O66.2 Obstructed labor due to unusually large fetus
CPT/HCPCS: 59514; 36415; 59025; 80053; 80305; 81001; 82800; 85025; 86850; 87086; 88305; 90707; 94761; C1758; C9290; C9803; G0283; J2405; U0003; U0005

== ENCOUNTER 2023-09-27 10:58 | Emergency (ER) | payer OTHER, SELFPAY ==
[2023-09-27] VITALS (8 sets, daily range): BP systolic 126–151; BP diastolic 77–97; PULSE 71–89; RESP 16; TEMP 36.8; O2SAT 93–100; BMI 37.4
--- NOTE | 2023-09-27 11:21 | CT_ITS ---
FINAL REPORT TECHNIQUE: Postcontrast axial images through the abdomen and pelvis were performed. This study was performed with techniques to keep radiation doses as low as reasonably achievable, (ALARA). Individualized dose reduction techniques using automated exposure control or adjustment of mA and/or kV according to the patient's size were employed. CLINICAL HISTORY: RUQ pain, nausea/vomiting FINDINGS: Abdomen: The lung bases are clear. The liver is normal in size and attenuation. The gallbladder is present. The spleen is unremarkable. The adrenals are normal. The pancreas is unremarkable. The kidneys enhance appropriately. The aorta is normal in caliber. No free fluid or adenopathy is identified. No findings for mechanical bowel obstruction are identified. Pelvis: The appendix is normal. The urinary bladder is distended. The uterus is retroverted. There is a septated cystic mass in the left adnexal region measuring 9.1 x 5.8 cm. The right ovary is unremarkable. No free fluid, free air, abscess or adenopathy is identified. IMPRESSION: Multi septated cystic mass in the left adnexal region, may be physiologic. Gynecologic evaluation is recommended. Follow-up pelvic ultrasound in 6 or 10 weeks is also recommended. Reviewed, Interpreted and Dictated by Clemente Andrade MD Transcribed by Whitney Rosario Authenticated and [facility]
--- NOTE | 2023-09-27 11:22 | HMH.EDGENADL ---
Discharge Plan Disposition Patient Disposition: Home, Self-Care Condition: Good Prescriptions Prescriptions: New ondansetron 4 mg tablet,disintegrating 4 mg PO Q6H PRN (Reason: nausea and vomiting) Qty: 14 0RF No Action bupropion HCl 150 mg tablet extended release 24 hr 150 mg PO DAILY Patient Comments: TAKE 1 TABLET BY MOUTH EVERY 24 HOURS norgestimate-ethinyl estradiol [Sprintec (28)] 0.25-35 mg-mcg tablet 1 tab PO DAILY Qty: 28 11RF Referrals Follow up/Referrals: Monique Costa APRN [Primary Care Provider] - See instructions Ronal Neves MD [Staff Physician] - See instructions Activity Restrictions/Add. Instructions Additional Instructions/Restrictions: You were seen in the ED today due to abdominal pain. Labs showed elevated bilirubin and liver enzymes. CT and ultrasound were reassuring. Please contact general surgery team. Follow-up with your primary care provider as well. Follow-up with gynecology in regards to left ovarian cyst. Return to the ED if symptoms worsen or if new concerning symptoms arise. Thank you. Clinical Impressions Clinical Impression: Right upper quadrant abdominal pain Instructions Patient Instructions: DI for Acute Abdominal Pain Discharge ED Provider: Jermain Mejía Adult HPI General Chief complaint: Abdominal Pain Stated complaint: upper abd pain Time Seen by Provider: 09/27/23 11:17 Mode of Arrival: Ambulatory Source of Information: Patient Limitations: No Limitations Description of Symptoms (Recalled from ER Triage Doc. by RN): Patient reports mid upper abdomen pain that began last night. States that it radiates to the right and that she has had some vomiting as well. History of Present Illness HPI narrative: Patient is a 22-year-old female with no significant medical history who presents due to abdominal pain and nausea/vomiting. Patient's grandfather is present to help provide history. Patient reports symptoms began last night. She has had sharp, stabbing upper abdominal pain which has been persistent since last night. She has had accompanying nausea and vomiting. Reports she has had similar symptoms prior but they have never lasted this long. Denies any fevers, chills, dysuria, diarrhea. Reports last menstrual period approximately 4 weeks ago. Reports abdominal surgical history of section. Related Data Home Medications Medication Instructions Recorded Confirmed bupropion HCl 150 mg 24 hr tablet, 150 mg PO DAILY 08/13/23 08/13/23 extended release Previous Rx's Medication Instructions Recorded norgestimate 0.25 mg-ethinyl 1 tab PO DAILY #28 tabs 01/29/23 estradiol 35 mcg tablet (Sprintec (28)) ondansetron 4 mg disintegrating 4 mg PO Q6H PRN nausea and 09/27/23 tablet vomiting #14 tabs Allergies Allergy/AdvReac Type Severity Reaction Status Date / Time No Known Allergies Allergy Verified 08/13/23 13:57 PFSH [facility] Disclaimer: The information contained in this section may have been updated after the patient was seen, as this information can be updated by other users. Medical History BMI over 35 Endometriosis vesico-uterine peritoneum Polycystic ovary Right Surgical History History of delivery Family History Other Diabetes Social History Smoking Status: Never smoker alcohol intake: never substance use type: denies use current occupational status: employed Travel in the last 8 weeks: None ROS Obtained: Yes All systems reviewed & no additional complaints except as documented Gastrointestinal Gastrointestingal: Reports abdominal pain, nausea and vomiting Physical Exam General General appearance: alert and in no apparent distress Head Head exam: atraumatic, normocephalic and normal inspection Eye Eye exam: Present normal appearance, PERRL and EOMI ENT ENT exam: Present normal exam, normal oropharynx, mucous membranes moist, TM's normal bilaterally and normal external ear exam Neck Neck exam: Present normal inspection, full ROM and trachea midline; Absent meningismus or lymphadenopathy Chest Chest inspection: Present normal inspection and symmetric chest wall rise; Absent tenderness Respiratory Respiratory exam: Present normal lung sounds bilaterally; Absent respiratory distress Cardiovascular Cardiovascular exam: Present regular rate and normal rhythm; Absent JVD Abdominal Exam Abdominal exam: Present soft, tenderness and normal bowel sounds; Absent distention or guarding Abdominal tenderness: Present RUQ and epigastrium Extremities Exam Extremities exam: Present normal inspection, full ROM and normal capillary refill; Absent calf tenderness Back Exam Back exam: Present normal inspection; Absent tenderness Neurological Exam Neurological exam: Present alert and oriented X3 Psychiatric Psychiatric exam: Present normal affect and normal mood Skin Skin exam: Present warm, dry, intact and normal color Lymphatic Lymphatic Findings: no adenopathy Medical Decision Making Jace Inquiry Pt receiving controlled substance: No Jace was queried for this patient: No Vital Signs: 09/27/23 10:59 09/27/23 11:08 09/27/23 11:30 Temperature 98.2 F Temperature Source Oral Pulse Rate 81 89 Pulse Rate [Radial] 83 Respiratory Rate 16 Blood Pressure 126/85 Blood Pressure [Right Arm] 137/92 H Blood Pressure Mean [Right Arm] 107 Blood Pressure Source [Right Arm] Automatic Cuff Blood Pressure Position [Right Arm] Sitting 02 Sat by Pulse Oximetry 100 97 98 Oxygen Delivery Method Room Air 09/27/23 12:01 09/27/23 12:30 09/27/23 14:00 Temperature Temperature Source Pulse Rate 85 71 89 Pulse Rate [Radial] Respiratory Rate Blood Pressure 141/80 H 129/77 138/97 H Blood Pressure [Right Arm] Blood Pressure Mean [Right Arm] Blood Pressure Source [Right Arm] Blood Pressure Position [Right Arm] 02 Sat by Pulse Oximetry 93 L 98 97 Oxygen Delivery Method 09/27/23 14:30 Temperature Temperature Source Pulse Rate 81 Pulse Rate [Radial] Respiratory Rate Blood Pressure 151/84 H Blood Pressure [Right Arm] Blood Pressure Mean [Right Arm] Blood Pressure Source [Right Arm] Blood Pressure Position [Right Arm] 02 Sat by Pulse Oximetry 99 Oxygen Delivery Method Lab Data Lab Results 09/27/23 11:15: WBC 9.1, RBC 5.02, Hgb 14.5, Hct 45.1, MCV 89.7, MCH 29.0, MCHC 32.3, RDW 13.4, Plt Count 300, MPV 7.4, Neut % (Auto) 76.1, Lymph % (Auto) 15.7, [place] % (Auto) 6.9, Eos % (Auto) 0.8, Baso % (Auto) 0.5, Neut # (Auto) 7.0, Lymph # (Auto) 1.4, [place] # (Auto) 0.6, Eos # (Auto) 0.1, Baso # (Auto) 0.1, Sodium 139, Potassium 4.3, Chloride 109 H, Carbon Dioxide 25, Anion Gap 9.3, BUN 10, Creatinine 0.60, Estimated Creat Clear 235, Estimated GFR 124, Est GFR ( Amer) 150, Glucose 108 H, Calcium 9.0, Total Bilirubin 1.7 H, AST 197 H, ALT 130 H, Alkaline Phosphatase 72, Total Protein 7.0, Albumin 3.9, Globulin 3.1, Albumin/Globulin Ratio 1.3, Lipase 125, Serum HCG, Qual Negative, Urine Color Dark yellow, Urine Appearance Sl cloudy, Urine pH 6.0, Ur Specific [place] >= 1.030, Urine Protein Trace, Urine Glucose (UA) Negative, Urine Ketones Negative, Urine Blood Negative, Urine Nitrate Negative, Urine Bilirubin 2+ A, Urine Urobilinogen 1.0, Ur Leukocyte Esterase Negative, Urine RBC None, Urine WBC Occasional, Ur Squamous Epith Cells 3-5, Urine Bacteria Trace 09/27/23 11:21: VBG Lactic Acid 1.9 09/27/23 11:15 09/27/23 11:15 Orders (Tests/Meds): ED MEDICATIONS Generic Name Dose Route Start Last Admin Trade Name Freq PRN Reason Stop Dose Admin Sodium Chloride 10 ml 09/27/23 11:20 Sodium Chloride 0.9% 10ml Flush Syringe IV 10/27/23 11:19 NEEDED PRN Maintain IV Site Discontinued Medications Generic Name Dose Route Start Last Admin Trade Name Freq PRN Reason Stop Dose Admin Lactated Ringer's 1,000 mls @ 999 mls/hr 09/27/23 11:25 09/27/23 11:37 Lactated Ringer's 1000 Ml Bag IV 09/27/23 12:25 999 mls/hr .Q1H1M ONE Administration Iopamidol 75 ml 09/27/23 12:05 09/27/23 12:06 Iopamidol-370 (76%);100ml Bottle IV 09/27/23 12:06 75 ml ONCE ONE Administration Morphine Sulfate 4 mg 09/27/23 11:21 09/27/23 11:36 Morphine 4mg/Ml Syringe IV 09/27/23 11:22 4 mg ONCE ONE Administration Sodium Chloride 10 ml 09/27/23 12:05 09/27/23 12:06 Sodium Chloride 0.9% 10ml Syr (Rad Only) IV 09/27/23 12:06 10 ml ONCE ONE Administration ORDERS Category Date Time Status CT abdomen pelvis w con Stat Cat Scan 03/29/24 11:21 Completed US Right Upper Quad [US abdomen limited] Stat Exams 09/27/23 13:14 Taken CBC w/Auto Diff [Complete Blood Count Auto Diff] Stat Lab 09/27/23 11:15 Completed CMP [Comprehensive Metabolic Panel] Stat Lab 09/27/23 11:15 Completed HCG Qualitative, Serum Stat Lab 09/27/23 11:15 Completed Lactate Venous Stat Lab 09/27/23 11:21 Completed Lipase Stat Lab 09/27/23 11:15 Completed Urinalysis and Microscopic Stat Lab 09/27/23 11:15 Completed Medical Decision Narrative: In summary, patient is a 22-year-old female, evaluated in the emergency department today due to abdominal pain, nausea and vomiting. On arrival, patient is hypertensive but hemodynamically stable, otherwise afebrile with normal vital signs. On examination, patient has right upper quadrant and epigastric tenderness. Differential diagnosis includes but is not limited to gastritis, pancreatitis, biliary disease, gallstones, cholecystitis, appendicitis. Patient given 1 L LR bolus, IV morphine. Workup initiated including CBC, CMP, lipase, lactate, qualitative hCG, urinalysis, CT abdomen/pelvis with contrast, right upper quadrant ultrasound. Labs independently interpreted by me and significant for bilirubin 1.7, elevated liver enzymes. Imaging independently interpreted by me and significant for CT abdomen/pelvis demonstrating left complex ovarian cyst. Right upper quadrant ultrasound obtained and reviewed demonstrating no acute findings. On reevaluation, patient is resting comfortably and tolerating oral intake. Given reassuring imaging and symptom control, she is appropriate for discharge at this time. Referral for general surgery team provided given concern for gallbladder pathology. Patient counseled on home care, given strict return precautions and agreeable to plan. Additional history was provided by family. I considered admitting the patient to the hospital for further symptom control, and in shared decision-making with patient, decided on outpatient management. Critical Care Critical Care Time Critical Care Time: No
[2023-09-27 11:25] LABS: Microscopic, Urine URINE MICROSCOPIC (MICROSCOPIC)
[2023-09-27 11:30] LABS: Chloride 109 mmol/L (98-107); Potassium 4.3 mmoL/L (3.5-5.1); Sodium 139 mmol/L (136-145)
[2023-09-27 11:30] LABS: Lactate Venous 1.9 mmol/L (0.4-2.0)
[2023-09-27 11:31] LABS: Appearance,Urine SL CLOUDY (Clear); Bilirubin,Urine 2+ (Negative); Blood, Urine Negative (Negative); Color,Urine DARK YELLOW (Yellow); Glucose,Urine (UA) Negative (Negative); Ketones,Urine Negative (Negative); Leukocyte Esterase,Urine Negative (Negative); Nitrate,Urine Negative (Negative); Protein,Urine TRACE (Negative); Specific Gravity, Urine >= 1.030 (1.005-1.030)
[2023-09-27 11:32] LABS: Alanine Aminotransferase 130 U/L (12-78); Blood Urea Nitrogen 10 mg/dl (7-17); Creatinine Clearance Estimated 235 mL/min (50-200); Estimated Glomerular Filt Rate 124 ml/min (>60); GFR (African American) 150 ML/MIN (>60); HCG Qualitative, Serum Negative (Negative)
[2023-09-27 11:33] LABS: Albumin Level 3.9 g/dl (3.5-5.0); Albumin/Globulin Ratio 1.3 (1.1-1.8); Alkaline Phosphatase 72 U/L (38-126); Anion Gap 9.3 mEq/L (5-15); Aspartate Amino Transferase 197 U/L (14-36); Bilirubin,Total 1.7 mg/dl (0.2-1.3); Carbon Dioxide 25 mmol/L (22.0-30.0); Globulin 3.1 g/dL (1.3-3.2); Glucose 108 mg/dl (74-100); Lipase 125 U/L (23-300)
[2023-09-27 11:34] LABS: Basophils # 0.1 K/mm3 (0-0.2); Basophils % 0.5 % (0.1-2.0); Eosinophils # 0.1 K/mm3 (0.0-0.4); Eosinophils % 0.8 % (0.1-12.0); Hematocrit 45.1 % (37.0-47.0); Hemoglobin 14.5 g/dL (12.2-16.2); Lymphocytes # 1.4 K/mm3 (0.7-4.5); Lymphocytes % 15.7 % (10-50); Mean Corpuscular HGB Conc 32.3 g/dL (31.8-35.4); Mean Corpuscular Volume 89.7 fl (81-99); Mean Platelet Volume 7.4 fl (7.4-10.4); Monocytes # 0.6 K/mm3 (0.1-1.0); Monocytes % 6.9 % (1.7-9.3); Neutrophils % 76.1 % (37.0-80.0); Platelet Count 300 K/mm3 (142-424); Red Blood Count 5.02 M/mm3 (4.20-5.40); Red Cell Distribution Width 13.4 % (11.5-17.5); White Blood Count 9.1 K/mm3 (4.8-10.8)
[2023-09-27] MEDS: MORPHINE 4MG/ML SYRINGE 4 MG IV (11:36)
[2023-09-27] MEDS: LACTATED RINGERS 1000ML 1,000 ML 999 ML IV (11:37)
[2023-09-27 11:41] LABS: Bacteria,Urine Trace /lpf; WBC,Urine Occasional #/hpf (0-3)
[2023-09-27] MEDS: SODIUM CHLORIDE 0.9% 10ML SYR (RAD ONLY) 10 ML IV (12:06)
[2023-09-27] MEDS: IOPAMIDOL-370 (76%);100ML BOTTLE 75 ML IV (12:06)
--- NOTE | 2023-09-27 13:14 | US_ITS ---
FINAL REPORT CLINICAL HISTORY: RUQ pain, c/f gallbladder disease FINDINGS: RIGHT UPPER QUADRANT ULTRASOUND Sonographic images of the right upper quadrant were obtained. Pancreas is within normal limits. The liver has an unremarkable appearance. The gallbladder is septated. The common duct is normal. Limited images of the right kidney are normal. IMPRESSION: Septated gallbladder. Reviewed, Interpreted and Dictated by Clemente Andrdae MD Transcribed by Whitney Rosario Authenticated and . [facility]
--- NOTE | 2023-09-27 13:14 | PC.NURSE ---
radiology aware of us for gallbladder
--- NOTE | 2023-09-27 13:27 | PC.NURSE ---
patient gone to US at this time.
--- NOTE | 2023-09-27 13:49 | PC.NURSE ---
patient back in room at this time
== END 2023-09-27 15:37 | disposition home or self-care (01) ==
PROVIDERS: Emergency Provider Student in an Organized Health Care Education/Training Program; PCP Nurse Practitioner Family
DX: R10.11 Right upper quadrant pain (principal); R11.2 Nausea with vomiting, unspecified
CPT/HCPCS: 74177; 76705; 80053; 81001; 83605; 83690; 84703; 85025; 96361; 96374; 99285; Q9967

== ENCOUNTER 2023-09-28 09:03 | Outpatient (CLI) | payer OTHER, SELFPAY ==
[2023-09-28 09:18] LABS: Basophils # 0.1 K/mm3 (0-0.2); Basophils % 0.8 % (0.1-2.0); Eosinophils # 0.1 K/mm3 (0.0-0.4); Eosinophils % 1.7 % (0.1-12.0); Hematocrit 43.8 % (37.0-47.0); Hemoglobin 14.4 g/dL (12.2-16.2); Lymphocytes # 1.5 K/mm3 (0.7-4.5); Lymphocytes % 18.1 % (10-50); Mean Corpuscular Hemoglobin 29.9 pg (27.0-31.2); Mean Corpuscular Volume 90.6 fl (81-99); Mean Platelet Volume 7.4 fl (7.4-10.4); Monocytes # 0.6 K/mm3 (0.1-1.0); Monocytes % 6.9 % (1.7-9.3); Neutrophils # 5.8 K/mm3 (1.8-7.8); Neutrophils % 72.5 % (37.0-80.0); Platelet Count 288 K/mm3 (142-424); Red Blood Count 4.83 M/mm3 (4.20-5.40); Red Cell Distribution Width 13.5 % (11.5-17.5)
[2023-09-28 09:49] LABS: Chloride 109 mmol/L (98-107)
[2023-09-28 09:50] LABS: Potassium 4.3 mmoL/L (3.5-5.1); Sodium 139 mmol/L (136-145)
[2023-09-28 09:52] LABS: Alanine Aminotransferase 139 U/L (12-78); Albumin Level 3.8 g/dl (3.5-5.0); Albumin/Globulin Ratio 1.4 (1.1-1.8); Alkaline Phosphatase 81 U/L (38-126); Anion Gap 10.3 mEq/L (5-15); Aspartate Amino Transferase 114 U/L (14-36); Bilirubin,Total 2.8 mg/dl (0.2-1.3); Blood Urea Nitrogen 9 mg/dl (7-17); Carbon Dioxide 24 mmol/L (22.0-30.0); Estimated Glomerular Filt Rate 104 ml/min (>60); GFR (African American) 125 ML/MIN (>60); Globulin 2.8 g/dL (1.3-3.2); Glucose 107 mg/dl (74-100); Total Protein,Serum 6.6 g/dl (6.3-8.2)
[2023-09-28 09:53] LABS: Calcium 9.4 mg/dl (8.4-10.2)
== END 2023-09-28 23:59 ==
LOC: LAB 09:04
PROVIDERS: Nurse Practitioner Family; PCP Internal Medicine Adolescent Medicine; Visit Provider Internal Medicine Adolescent Medicine
DX: R10.11 Right upper quadrant pain (principal); R74.8 Abnormal levels of other serum enzymes
CPT/HCPCS: 36415; 80053; 85025

== ENCOUNTER 2024-02-14 13:01 | Outpatient (CLI) | payer OTHER, SELFPAY ==
--- NOTE | 2024-02-14 13:01 | US_ITS ---
PROCEDURE: US TRANSVAGINAL CLINICAL INDICATION: AUB COMPARISON: CT CT ABDOMEN PELVIS W CON from 09/27/2023 FINDINGS: Transvaginal sonographic images of the pelvis were obtained. UTERUS: 8.3 cm x 6.0cmx 5.5cm retroflexed with a combined endometrial thickness of 10.8mm. LEFT OVARY: 9.0cmx10.5cmx5.9cm with a volume of 291.8ml. The large bilobed cyst in the right ovary measuring 10.5 cm x 6.5 cm x 6.2 cm. Cyst 1. 4.3 cm x 4.9 cm Cyst 2. 5.2 cm x 6.3 cm RIGHT OVARY: 5.3cmx 2.5cmx3.5cm with a volume of 22.2ml. The right ovary appears polycystic with multiple small peripheral follicles. Both ovaries are seen . Doppler flow to both ovaries are seen. There is no fluid in the cul-de-sac. IMPRESSION: 1. Retroflexed uterus normal in shape and size. The endometrium is normal and measures 10.8 mm. 2. The right ovary appears polycystic. 3. Left ovary contains a large bilobed cyst measuring 10.5 x 6.5 cm. 4. Cyst #1 measures 4.9 cm and cyst # 2 measures 6.3 cm. 5. No fluid in the cul-de-sac Dictated by: Rico Hernandez MD 02/14/2024 14:39 Rico Hernandez MD in OV 02/14/2024 14:39
== END 2024-02-14 23:59 | disposition home or self-care (01) ==
LOC: RAD 13:01
PROVIDERS: PCP Internal Medicine Adolescent Medicine; Visit Provider Obstetrics & Gynecology
DX: N93.9 Abnormal uterine and vaginal bleeding, unspecified (principal)
CPT/HCPCS: 76830

== ENCOUNTER 2024-03-20 08:04 | Outpatient (CLI) | payer OTHER, SELFPAY ==
[2024-03-20 08:42] LABS: Urine Pregnancy, HCG Qual. Negative (Negative)
[2024-03-20 08:44] LABS: Chloride 104 mmol/L (98-107); Potassium 4.1 mmoL/L (3.5-5.1); Sodium 139 mmol/L (136-145)
[2024-03-20 08:47] LABS: Anion Gap 14.1 mEq/L (5-15); Blood Urea Nitrogen 15 mg/dl (7-17); Calcium 9.1 mg/dl (8.4-10.2); Carbon Dioxide 25 mmol/L (22.0-30.0); Creatinine Clearance Estimated 200 mL/min (50-200); Estimated Glomerular Filt Rate 103 ml/min (>60); GFR (African American) 124 ML/MIN (>60); Glucose 101 mg/dl (74-100)
[2024-03-20 08:57] LABS: Basophils % 0.5 % (0.1-2.0); Eosinophils # 0.1 K/mm3 (0.0-0.4); Eosinophils % 1.4 % (0.1-12.0); Hematocrit 45.6 % (37.0-47.0); Hemoglobin 14.5 g/dL (12.2-16.2); Lymphocytes # 1.9 K/mm3 (0.7-4.5); Lymphocytes % 29.7 % (10-50); Mean Corpuscular HGB Conc 31.8 g/dL (31.8-35.4); Mean Corpuscular Hemoglobin 29.6 pg (27.0-31.2); Mean Corpuscular Volume 93.1 fl (81-99); Monocytes # 0.3 K/mm3 (0.1-1.0); Monocytes % 5.2 % (1.7-9.3); Neutrophils % 63.2 % (37.0-80.0); Platelet Count 270 K/mm3 (142-424); Red Blood Count 4.89 M/mm3 (4.20-5.40); Red Cell Distribution Width 13.2 % (11.5-17.5); White Blood Count 6.4 K/mm3 (4.8-10.8)
== END 2024-03-20 23:59 | disposition home or self-care (01) ==
LOC: PREOP 08:04
PROVIDERS: Nurse Anesthetist, Certified Registered; PCP Internal Medicine Adolescent Medicine; Visit Provider Obstetrics & Gynecology
DX: Z01.812 Encounter for preprocedural laboratory examination (principal)
CPT/HCPCS: 80048; 81025; 85025

== ENCOUNTER 2024-03-26 08:11 | Day surgery (SDC) | payer OTHER, SELFPAY ==
[2024-03-20 08:17] VITALS: BMI 37.4
[2024-03-20 08:42] LABS: Urine Pregnancy, HCG Qual. Negative (Negative)
[2024-03-20 08:44] LABS: Chloride 104 mmol/L (98-107); Potassium 4.1 mmoL/L (3.5-5.1); Sodium 139 mmol/L (136-145)
[2024-03-20 08:47] LABS: Anion Gap 14.1 mEq/L (5-15); Blood Urea Nitrogen 15 mg/dl (7-17); Calcium 9.1 mg/dl (8.4-10.2); Carbon Dioxide 25 mmol/L (22.0-30.0); Creatinine Clearance Estimated 200 mL/min (50-200); Estimated Glomerular Filt Rate 103 ml/min (>60); GFR (African American) 124 ML/MIN (>60); Glucose 101 mg/dl (74-100)
[2024-03-20 08:57] LABS: Basophils % 0.5 % (0.1-2.0); Eosinophils # 0.1 K/mm3 (0.0-0.4); Eosinophils % 1.4 % (0.1-12.0); Hematocrit 45.6 % (37.0-47.0); Hemoglobin 14.5 g/dL (12.2-16.2); Lymphocytes # 1.9 K/mm3 (0.7-4.5); Lymphocytes % 29.7 % (10-50); Mean Corpuscular HGB Conc 31.8 g/dL (31.8-35.4); Mean Corpuscular Hemoglobin 29.6 pg (27.0-31.2); Mean Corpuscular Volume 93.1 fl (81-99); Monocytes # 0.3 K/mm3 (0.1-1.0); Monocytes % 5.2 % (1.7-9.3); Neutrophils % 63.2 % (37.0-80.0); Platelet Count 270 K/mm3 (142-424); Red Blood Count 4.89 M/mm3 (4.20-5.40); Red Cell Distribution Width 13.2 % (11.5-17.5); White Blood Count 6.4 K/mm3 (4.8-10.8)
[2024-03-26] VITALS (10 sets, daily range): BP systolic 124–156; BP diastolic 75–94; PULSE 86–101; RESP 16–18; TEMP 36.4–36.9; O2SAT 93–98
[2024-03-26] MEDS: LACTATED RINGERS 1000ML 1,000 ML 25 ML IV (08:32)
--- NOTE | 2024-03-26 08:33 | P.PNANES_ITS ---
[facility] Disclaimer: The information contained in this section may have been updated after the patient was seen, as this information can be updated by other users. Medical History Peña's palsy Endometriosis BMI over 35 Polycystic ovary Surgical History History of cholecystectomy H/O right knee surgery History of delivery Family History Other Diabetes Family history of heart disease Social History Smoking Status: Never smoker alcohol intake: never substance use type: denies use current occupational status: employed Travel in the last 8 weeks: None [facility] Anesthesia Checklist Patient Identification Patient Identification: Arm Band and Verbal (Name & ) Structural Data Admitted From: Home Planned Operative Procedure/s: Dx lap Consent for Planned Operative Procedure(s) Verified: Yes Verified Documents: Surgical Consent and History and Physical NPO Status Verified Time NPO: 00:00 Chart Verification Results Verified: HCG Additional verifications Anesthesia Reactions: No Hx Blood Transfusions: No Airway Assessment Mallampati Score:: Class II C-Spine Mobility Assessed: Yes TMJ Mobility Assessed: Yes Dentition: Good Dentition Neurological Assessment Level of Consciousness: Awake Hx Seizures: No Numbness or tingling in extremities: No Anesthesia Plan Anesthesia Risk discussed: Yes Anesthesia Plan: Verified ASA Class: II Anesthesia Type: General
[2024-03-26] MEDS: ROPIVACAINE 0.5% 30ML VIAL 150 MG (11:28)
[2024-03-26] MEDS: LIDOCAINE 1% 20ML MDV 20 ML (11:28)
[2024-03-26] MEDS: SODIUM CHLORIDE IRRIG SOLUTION 3,000 ML 25 ML IR (11:28)
--- NOTE | 2024-03-26 12:51 | P.PNANES_ITS ---
[facility] Anesthesia Record Part I Anesthesia Record I Intake, IV Amount: 1,500 Hydration: Adequate Estimated blood loss (mL): 10 Urine output (mL): 0 Blood Products used (#): none Blood Pressure: 130/76 SaO2: 93 Pulse Rate: 91 Airway Patency: Patent Respiratory Rate: 16 Temperature: 98.5 F Patient is:: Drowsy and Stable Stable to PACU at:: 12:50
--- NOTE | 2024-03-26 15:11 | P.OP_ITS ---
Date of procedure: 03/26/24 Pre-op Diagnosis:: 1. 10 cm simple left ovarian cyst 2. Pelvic pain Post-op Diagnosis:: 1. 10 cm simple left ovarian cyst 2. Pelvic pain Procedure performed:: Left ovarian cystectomy Surgeon:: Devora Ceballos DO ORGANIZATIONAL DEVELOPMENT SPECIALIST:: Michael Bradshaw Anesthesia: GETA Estimated blood loss (mL): 50 Operative findings:: 1. Bimanual examination revealed an anteverted 8-week size uterus with a left adnexal fullness. 2. Left ovarian cyst, appearing to be simple and 10+cm. 3. Normal-appearing uterus, tubes and liver. 4. There were adhesions noted extending from the omentum to the anterior abdominal wall at the level of the umbilicus. 5. Endometriosis lesions noted on the bilateral ovaries and pelvic sidewalls. Endometriosis noted in the cul de sac. Endometrisis noted on the bilateral pelvic sidewall. No lesions noted on the bowel or bladder Operative note:: Claudio Golden is a 23-year-old presenting with a diagnosis of simple left adnexal mass measuring about 10cm. Mass initially discovered on CT scan in August and confirmed on TVUS in January. Stable and unchanged to the best of our knowledge. All risks and benefits of laparoscopic ovarian cystectomy had been discussed with the patient in clinic. All her questions were answered. The patient was taken to the OR where she was placed under general anesthesia without difficulty. She was then prepped and draped in the usual sterile fashion and placed in the dorsal lithotomy position. A preoperative bimanual examination revealed findings as above. Attention was turned to the vagina, where a weighted speculum was placed in the vagina and the anterior lip of the cervix was grasped using a single-toothed tenaculum. Ceiba uterine manipulator placed without difficulty and the weighted speculum was removed. The bladder had been drained with a Flores catheter. Attention was then turned to the abdomen where a total of 20mL of 0.5% Marcaine with epinephrine was used to inject the abdominal incision. A 5mm infraumbilical incision was made, under direct visualization abdominal acess was achieved and pneumoperitoneum was achieved. No evidence of injury to the bowel, omentum or surrounding structures appreciated. Two addition 5mm trocars were placed in the left and right lower quadrants under direct laparoscopic visualization. Examination of the pelvis revealed findings as above. At this time, the bilateral ovaries were elevated out of the pelvis and attention was turned to the left ovarian cyst. Needle aspirator was used to drain each cyst individually. The cyst fluid was collected and sent for cytology. An approximately 1cm incision was made along the ovary using electrocautery laparoscopic jerica. At this point, it was dissected initially using blunt dissection and countertraction. This was carefully completed throughout the circumference of the cyst wall and the cyst was removed. The ovarian bed was then irrigated and suctioned dry. There was slight oozing noted near the edge of the ovary, obtained hemostasis using electrocautery. The right ovary was noted to be normal without any appreciable cysts. The left lower quadrant port was transitioned to an 11mm post and the Endo Catch bag was placed. The cyst was placed in the Endo Catch bag. The bag was removed and sent to pathology. The pelvis was irrigated and hemostasis noted. Pressure was dropped to 5mmHg and hemostasis appreciated. There was an additional cyst that I did not feel could be removed without the possibility of removing the ovary. The patient previously expressed a desire to retain her ovary if possible so this cyst was simply drained and the wall was left in situ. At this time, all instruments were removed under visualization. The 10 mm umbilical incision was closed using a figure of eight 0-Vicryl stitch. The 3 laparoscopic incisions were closed using interrupted stitches of 4-0 Monocryl suture. Dermabond was placed after closure. The patient was cleaned. The patient tolerated the laparoscopic ovarian cystectomy well without complications and was taken to the recovery room in stable condition. Condition: stable Disposition: same day Specimens:: Left ovarian cyst, cyst fluid and cyst wall. Complications:: None
[2024-03-27 08:35] VITALS: BP 139/90; PULSE 91; RESP 16; TEMP 36.8; O2SAT 96
--- NOTE | 2024-03-27 08:35 | EXP.ANES.II ---
[facility] Anesthesia Record Part II Anesthesia Record Part II Discharge Time: 13:20 Destination: Surgical Day Care (OP Surgery) PACU nurse assessment reviewed?: Yes Patient Condition:: Good Anesthesia Complications:: None Swallowing reflex intact?: Yes Airway Patency: Patent Cyanosis?: No Blood Pressure: 139/90 SaO2: 96 Respiratory Rate: 16 Pulse Rate: 91 Temperature: 98.2 F Mental Status: Alert & Oriented Pain level:: 0 Nausea and/or vomitting:: None Intake, IV Amount: 0 Hydration: Adequate
== END 2024-03-26 15:19 | disposition home or self-care (01) ==
PROVIDERS: Nurse Anesthetist, Certified Registered; PCP Internal Medicine Adolescent Medicine; Visit Provider Obstetrics & Gynecology
PROC: (CPT 49320; principal; 2024-03-26 10:00)
DX: N83.292 Other ovarian cyst, left side (principal); R10.2 Pelvic and perineal pain
CPT/HCPCS: 58662; J3490; J1100; J1885; J2250; J2405; J3010; J7120

== ENCOUNTER 2024-07-18 02:46 | Emergency (ER) | payer OTHER, SELFPAY ==
[2024-07-18 02:48] VITALS: BP 137/94; PULSE 96; RESP 18; TEMP 36.5; O2SAT 99; BMI 39.6
--- NOTE | 2024-07-18 02:54 | XR_ITS ---
PROCEDURE INFORMATION: Exam: XR Right Foot Exam date and time: 07/18/2024 3:31 AM Age: 23 years old Clinical indication: Injury or trauma; Fall; Other: Pain; Additional info: Fall pain TECHNIQUE: Imaging protocol: Radiologic exam of the right foot. Views: 3 or more views. COMPARISON: CR XR ANKLE RT MIN 3V 07/18/2024 3:29 AM FINDINGS: Bones/joints: Normal. Soft tissues: Normal. IMPRESSION: No acute findings.
--- NOTE | 2024-07-18 02:58 | XR_ITS ---
PROCEDURE INFORMATION: Exam: XR Right Ankle Exam date and time: 07/18/2024 3:29 AM Age: 23 years old Clinical indication: Injury or trauma; Fall; Other: Pain; Additional info: Fall, lateral malleolus and prox foot ttp TECHNIQUE: Imaging protocol: Radiologic exam of the right ankle. Views: 3 or more views. COMPARISON: CT KNEE RT WO CON 01/13/2022 12:04 AM FINDINGS: Bones/joints: Normal. Soft tissues: Normal. IMPRESSION: No acute findings.
--- NOTE | 2024-07-18 03:49 | ED_ITS ---
Discharge Plan Disposition Patient Disposition: Home, Self-Care Condition: Good Prescriptions Prescriptions: No Action bupropion HCl 150 mg tablet extended release 24 hr 150 mg PO DAILY Patient Comments: TAKE 1 TABLET BY MOUTH EVERY 24 HOURS norgestimate-ethinyl estradiol [Joan] 0.25-35 mg-mcg tablet See Rx Instructions .ROUTE .COMPLEX Qty: 28 12RF Dose Instruction: TAKE 1 TABLET BY MOUTH DAILY Rx Instructions: TAKE 1 TABLET BY MOUTH DAILY acetaminophen 500 mg tablet 500 mg PO Q6H PRN (Reason: fever or pain) Qty: 30 3RF ibuprofen 800 mg tablet 800 mg PO Q8H PRN (Reason: pain) Qty: 60 2RF simethicone 125 mg tablet 125 mg PO DAILY PRN (Reason: abdominal distention) Qty: 60 2RF Referrals Follow up/Referrals: Graeme Barclay DO [Staff Physician] - See instructions (R ankle swelling pain after fall, no fx suspect high grade sprain) Francisco Ozuna MD [Primary Care Provider] - See instructions Activity Restrictions/Add. Instructions Additional Instructions/Restrictions: You were evaluated in the ER and are appropriate for discharge at this time. Wear the brace as needed for support and use the crutches if needed to help you get around. As tolerated, start walking on the ankle. Do the range of motion exercises as directed. Elevate the ankle to reduce swelling. Take Tylenol, ibuprofen if needed for pain, do not exceed the recommended dose on the bottle. Drink water and eat a small snack each time you take these medications to avoid side effects. Follow-up with your primary care doctor for reevaluation, also call Dr. Barclay's office for orthopedic follow-up. Return to the ER with new, worsening, or otherwise concerning symptoms. Clinical Impressions Clinical Impression: Ankle pain, right Qualifiers: Chronicity: acute Qualified Code(s): M25.571 - Pain in right ankle and joints of right foot Print Language Print Language: Turkmen Discharge ED Provider: Shukri Dwyer Adult [facility] General Chief complaint: Extremity Injury, Lower Stated complaint: R foot injury Time Seen by Provider: 07/18/24 02:53 Mode of Arrival: Wheelchair Source of Information: Patient Limitations: Physical Limitations Description of Symptoms (Recalled from ER Triage Doc. by RN): Pt presents to ED for a R ankle/foot pain. Pt states she was letting her dogs out and her foot bent backwards. Pt rates pain 8/10 and is A&O*4. History of Present Illness HPI narrative: 23-year-old female who had left ovarian cystectomy for abnormal mass recently presents to the ER with right foot/ankle pain. Patient reports she was letting her dogs out and her foot bent backwards. She states she has a cut on the right great toe as well. She states she is not worried about the cut but is worried about the pain and swelling in the right foot/ankle. She rates the pain an 8 out of 10. She states this happened shortly prior to arrival. She has not taken any medications for pain. Patient reports she is able to bear weight but has significant pain when doing so. She demonstrates to the right lateral ankle and top of the foot when indicating areas of maximal pain. She has full feeling in the foot and is able to fully move her toes. She states she is not currently on any daily medications, no known drug allergies. She denies any chance of being at this time. Related Data Home Medications ?Medication ?Instructions ?Recorded ?Confirmed bupropion HCl 150 mg 24 hr tablet, 150 mg PO DAILY 08/13/23 04/06/24 extended release Previous Rx's ?Medication ?Instructions ?Recorded acetaminophen 500 mg tablet 500 mg PO Q6H PRN fever or pain 03/26/24 #30 tabs ibuprofen 800 mg tablet 800 mg PO Q8H PRN pain #60 tabs 03/26/24 simethicone 125 mg tablet 125 mg PO DAILY PRN abdominal 03/26/24 distention #60 tabs norgestimate 0.25 mg-ethinyl See Rx Instructions .Route 07/17/24 estradiol 35 mcg tablet (Joan) .COMPLEX #28 tabs Allergies Allergy/AdvReac Type Severity Reaction Status Date / Time No Known Allergies Allergy Verified 04/06/24 11:19 [facility] Disclaimer: The information contained in this section may have been updated after the patient was seen, as this information can be updated by other users. 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 Endometriosis BMI over 35 Polycystic ovary Surgical History (Updated 04/06/24 @ 11:23 by DIPIKA Glover) History of ovarian cystectomy History of cholecystectomy H/O right knee surgery History of delivery Family History Other Diabetes Family history of heart disease Social History Smoking Status: Never smoker alcohol intake: never substance use type: denies use current occupational status: employed Travel in the last 8 weeks: None Have you lived/traveled outside US in past 30 days?: No Contact w/someone who lives/traveled outside US past 30 days?: No Exposure to someone with infectious disease in past 14 days?: No Do you have a fever (greater than 100.4 F or 38 C)?: No Have you tested positive for COVID-19: No Exposed to someone with COVID-19 in past 14 days?: No Do you have a sore throat?: No Do you have a cough?: No Do you have any weakness?: No Do you have any diarrhea?: No Are you experiencing any unusual bleeding?: No Do you have any muscle aches/pain?: No Do you have any abdominal pain?: No Are you experiencing loss of taste or smell?: No Other Medical History Have you received the Flu Vaccine for this season: No Have you received the Pneumonia Vaccine: No ROS Obtained: Yes Systems reviewed as appropriate & no additional complaints except as documented Per HPI Physical Exam General General appearance: alert and in no apparent distress Head Head exam: atraumatic and normocephalic Eye Eye exam: Present PERRL and EOMI ENT ENT exam: Present mucous membranes moist Neck Neck exam: Present normal inspection and full ROM Chest Chest inspection: Present symmetric chest wall rise Respiratory Respiratory exam: Absent respiratory distress or stridor Cardiovascular Cardiovascular exam: Present regular rate and normal rhythm Abdominal Exam Abdominal exam: Present soft; Absent distention or tenderness Extremities Exam Extremities exam: Present tenderness (Tenderness to palpation of the posterior lateral malleolus as well as the top of the proximal foot), normal capillary refill, joint swelling (Swelling over the lateral malleolus and top of the right foot) and other (2+ DP and PT pulses, neurovascularly intact; superficial abrasion/skin tear on the medial aspect of the right great toe, no gaping, hemostatic); Absent full ROM (Limited range of motion of the right ankle secondary to pain), edema or calf tenderness Neurological Exam Neurological exam: Present alert and oriented X3; Absent motor sensory deficit Psychiatric Psychiatric exam: Present normal affect and normal mood Skin Skin exam: Present warm and dry Medical Decision Making Medical Records Medical records reviewed: Yes I reviewed the patient's medical records. Screening: Per USPSTF and CDC recommendations, given the prevalence of disease in our region, it is our hospital?s policy to screen for HIV and viral Hepatitis for all patients aged 18 and over and those with ongoing risk factors. MR Comment: Operative note from 03/26/[address] Ceballos demonstrates patient had a large left ovarian cyst, enlarged uterus, adhesions from the omentum to the anterior abdominal wall. Endometriosis. Cyst fluid was collected for cyt ology. Ultimately patient underwent left ovarian cystectomy. Jace Inquiry Pt receiving controlled substance: No Vital Signs: 07/18/24 02:48 Temperature 97.7 F Temperature Source Oral Pulse Rate [Left] 96 H Respiratory Rate 18 Blood Pressure [Right Arm] 137/94 H Blood Pressure Mean [Right Arm] 108 02 Sat by Pulse Oximetry 99 Oxygen Delivery Method Room Air Orders (Tests/Meds): ED MEDICATIONS Discontinued Medications Generic Name Dose Route Start Last Admin Trade Name Freq PRN Reason Stop Dose Admin Acetaminophen 1,000 mg 07/18/24 04:05 07/18/24 04:13 Acetaminophen 500mg Tab PO 07/18/24 04:06 1,000 mg ONCE ONE Administration Ketorolac Tromethamine 30 mg 07/18/24 04:05 07/18/24 04:13 Ketorolac 30mg/Ml Vial IM 07/18/24 04:06 30 mg ONCE ONE Administration ORDERS Category Date Time Status Ankle XR -Right minimum 3 Views [XR ankle RT min 3V] Exams 07/18/24 02:58 Completed Stat Foot XR right minimum 3 views [XR foot RT min 3V] Stat Exams 07/18/24 02:54 Completed Medical Decision Narrative: In summary, this 23-year-old female with comorbidities described in the HPI presents to the emergency department today with right foot/ankle pain and swelling. On initial evaluation patient is hemodynamically stable, afebrile, overall exam is reassuring except patient has tenderness and swelling of the right foot and ankle as described in the physical exam. Neurovascularly intact. Laceration of the right great toe does not require any intervention. Di fferential diagnosis includes but is not limited to fracture, dislocation, soft tissue injury, sprain, strain, Lisfranc injury, Corley fracture, also considered neurovascular injury though there is no evidence of this on exam. Based on these concerns, I ordered x-ray imaging of right lower extremity. Patient received Toradol, acetaminophen for pain management. X-rays personally interpreted do not demonstrate any obvious acute osseous injury, see radiology read for final interpretation. Patient was placed in a brace and provided crutches for ambulation. She was referred to Dr. Barclay for outpatient follow-up and instructed to follow-up with primary care doctor as well. Patient was given instructions on symptomatic management, follow up instructions, and return precautions for the emergency department. Patient indicated understanding and was discharged in stable condition. Critical Care Critical Care Time Critical Care Time: No
[2024-07-18] MEDS: KETOROLAC 30MG/ML VIAL 30 MG IM (04:13)
[2024-07-18] MEDS: ACETAMINOPHEN 500MG TAB 1000 MG PO (04:13)
[2024-07-18 05:56] VITALS: BP 120/78; PULSE 85; RESP 18; TEMP 36.5; O2SAT 97
== END 2024-07-18 05:58 | disposition home or self-care (01) ==
PROVIDERS: Emergency Provider Emergency Medicine; PCP Internal Medicine Adolescent Medicine
DX: M25.571 Pain in right ankle and joints of right foot (principal); M79.671 Pain in right foot; X58.XXXA Exposure to other specified factors, initial encounter; Y93.89 Activity, other specified; Y92.008 Other place in unspecified non-institutional (private) residence as the place of occurrence of the external cause
CPT/HCPCS: 73610; 73630; 96372; 99283; J1885

== ENCOUNTER 2025-01-12 15:30 | Outpatient (CLI) | payer BC, SELFPAY ==
--- NOTE | 2025-01-12 15:30 | US_ITS ---
PROCEDURE: US TRANSVAGINAL CLINICAL INDICATION: IUD placement COMPARISON: US US ABDOMEN LIMITED from 09/27/[address] ABDOMEN PELVIS W CON from 09/27/2023 FINDINGS: Transvaginal sonographic images of the pelvis were obtained. UTERUS: 7.5 cm x 5.9 cm x 4.7 cm retroverted with a combined endometrial thickness of 3.8mm. There is a 1.3 cm nabothian cyst in the cervix. There is an IUD within the uterine cavity in the correct position. LEFT OVARY: The left ovary is not visualized and could be surgically absent. RIGHT OVARY: 7.3cmx 4.5cmx4.2cm with a volume of 72ml. There is a multi-cystic follicle in the right ovary that measures 3.6 cm x 3.2 cm x 4.1 cm. There are multiple other peripheral follicles. Both ovaries are seen and appear normal. Doppler flow to both ovaries are seen. There is no fluid in the cul-de-sac. IMPRESSION: 1. Retroverted uterus normal in shape and size. The endometrium is thin measuring 3.8 mm. Within the uterine cavity is an IUD in the correct position. 2. The left ovary is surgically absent and not visualized. The right ovary is enlarged contains multiple small follicles. There is a dominant follicle measuring 4.1 cm with smaller follicles within it. Would suggest a follow-up ultrasound in 3 months. 3. No fluid in the cul-de-sac. Dictated by: Rico Hernandez MD 01/12/2025 16:28 Rico Hernandez MD in OV 01/12/2025 16:28
--- OUTSIDE RECORDS SUMMARY | 2025-01-12 15:32 | XMS_ITS | Encounter Summary ---
Author Organization Healthcare Address [address] [place] [address] Care Team Providers Care Farm Tractor Mechanic Name Role Phone Francisco Ozuna MD Primary Care Provider [phone] Serina Draper DO Unavailable [phone] Encounter Details Date Type Department Care Team (Late Contact Info) Description 04/13/2024 Lab Requisition [facility] [address] [place] [id number] Pedro Pablo Butler MD [address] [facility] [address] [place] [address] Unspecified ovarian cyst, left side Social History Tobacco Use Types Packs/Day Years Used Date Smoking Tobacco: Never Smokeless Tobacco: Never Alcohol Use Standard Drinks/Week Comments Never 0 (1 standard drink = 0.6 oz pur e alcohol) PHQ-2 Answer Date Recorded Patient Health Questionnaire-2 Score 0 04/09/2024 Comments No Sex and Gender Information Value Date Recorded Sex Assigned at Not on file Legal Sex Female 7:15 PM EDT Gender Identity Not on file Sexual Orientation Not on file documented as of this encounter Plan of Treatment Upcoming Encounters Date Type Department Care Team (Late Contact Info) Description 04/22/2025 12:30 PM EDT Ancillary Procedure [facility] [address] [place] [phone] 04/22/2025 1:00 PM EDT Office Visit [facility] [address] [place] [address] Charito Young MD [address] [place] [facility] [address] [place] [address] documented as of this encounter Procedures Procedure Name Priority Date/Time Associated Diagnosis Comments CYTOLOGY CONSULT 04/13/2024 2:08 PM EDT Unspecified ovarian cyst, left side documented in this encounter Results * Cytology Consult (04/13/2024 2:08 PM EDT) Case Report Cytology Case: [id number] Authorizing Provider: Pedro Pablo Butler MD Collected: 04/13/20241407 Ordering Location: [facility] Lab Received: 04/13/2024 1406 Pathologist: Doris Sellers MD Specimen: Ovary, Left, [id number] 04/14/2024 5:12 PM EDT [facility] Final Diagnosis A. LEFT OVARIAN CYST FLUID (OUTSIDE CASE [id number]; DOS 03/26/2024): - FRAGMENT OF LOW GRADE SEROUS NEOPLASM, SEE COMMENT 04/14/2024 5:12 PM EDT [facility] at 1711 EDT Comment The cell block demonstrates papillary fronds lined by serous type epithelium with low grade nuclear features. The differential diagnosis would include a serous borderline tumor as well as other low grade serous neoplasms. Correlation with the corresponding surgical specimen is recommended. 04/14/2024 5:12 PM EDT [facility] Clinical Information N83.202 - Unspecified ovarian cyst, left side [ICD-10-CM] 04/14/2024 5:12 PM EDT [facility] Gross Description A. [id number] Received along with a corresponding pathology report from [facility] are 2 slides labeled outside case: [id number] collected on 03/26/2024. 04/14/2024 5:12 PM EDT [facility] Structure of left ovary / Unknown 04/13/2024 2:08 PM EDT 04/13/2024 2:08 PM EDT us Pedro Pablo Butler MD LAB PATHOLOGY ORDERABLES F inal Result [facility] [address] [place] [address] documented in this encounter Visit Diagnoses Diagnosis Unspecified ovarian cyst, left side documented in this encounter Additional Health Concerns Assessment Noted Time A fall risk assessment has been complete d for the patient 04/09/2024 11:21 AM EDT documented as of this encounter Care Teams Farm Tractor Mechanic Relationship Specialty Start Date End Date Francisco Ozuna MD [address] [place] [address] PCP - General 11/11/20 Serina Draper DO [address] [place] [address] Referring Physician Obstetrics and Gynecology 04/07/24 documented as of this encounter
--- OUTSIDE RECORDS SUMMARY | 2025-01-12 15:32 | XMS_ITS | Encounter Summary ---
Author Organization Healthcare Address [address] [place] [address] Care Team Providers Care Shaft Repairer Name Role Phone Francisco Ozuna MD Primary Care Provider [phone] Serina Draper DO Unavailable [phone] Encounter Details Date Type Department Care Team (Late Contact Info) Description 10/05/2024 Results Follow-Up [facility] [address] [place] [address] Nneka Buitrago MD [address] [place] [address] Social History Tobacco Use Types Packs/Day Years Used Date Smoking Tobacco: Never Passive Smoke Exposure: Never Smokeless Tobacco: Never Alcohol Use Standard Drinks/Week Comments Never 0 (1 standard drink = 0.6 oz pur e alcohol) PHQ-2 Answer Date Recorded Patient Health Questionnaire-2 Score 0 10/01/2024 Comments No Sex and Gender Information Value [...] Gynecology [address] [place] [address] 04/22/2025 1:00 PM EDT Office Visit [facility] [address] [place] [address] Charito Young MD 800 [facility] [address] [place] [address] documented as of this encounter Visit Diagnoses Not on filedocumented in this encounter Additional Health Concerns Assessment Noted Time A fall risk assessment has been complete d for the patient 10/01/2024 3:06 PM EDT documented as of this encounter Care Teams Shaft Repairer Relationship Specialty Start Date End Date Francisco Ozuna MD [address] [place] [address] PCP - General 11/11/20 Serina Draper DO [address] [place], [place] [id number] Referring Physician Obstetrics and Gynecology 04/07/24 documented as of this encounter
--- OUTSIDE RECORDS SUMMARY | 2025-01-12 15:32 | XMS_ITS | Clinical Summary ---
Author Organization [facility] Address [address] [place] [address] Care Team Providers Care Chartered Financial Analyst Name Role Phone Francisco Ozuna MD Primary Care Provider [phone] Bonny Serina Gaby DO Unavailable [phone] Allergies No known active allergies Medications buPROPion XL (Wellbutrin XL) 150 MG 24 hr tablet Take 1 tablet (150 mg) by mouth every night. Active acetaminophen (Tylenol) 325 MG tablet Take 2 tablets (650 mg) by mouth every 6 (six) hours if needed for pain. 100 tablet 05/22/20 Active Additional Information Patient not taking.Reported on 06/18/2024 ibuprofen 600 MG tablet Take 1 tablet (600 mg) by mouth every 6 (six) hours if needed for mild pain or moderate pain. 100 tablet 05/22/20 Active Additional Information Patient not taking.Reported on 06/18/2024 oxyCODONE (Roxicodone) 5 MG immediate release tablet Take 1 tablet (5 mg) by mouth every 6 (six) hours if needed for severe pain. 7 tablet 05/22/20 Active Additional Information Patient not taking.Reported on 06/18/2024 ondansetron ODT (Zofran-ODT) 4 MG disintegrating tabletIndications: Nausea without vomiting Take 1 tablet (4 mg) by mouth every 8 (eight) hours if needed for nausea or vomiting. 20 tablet 06/01/20 Active Additional Information Patient not taking.Reported on 06/18/2024 simethicone (Mylicon) 80 MG chewable tabletIndications: Abdominal gas pain Chew 1 tablet (80 mg) every 6 (six) hours if needed for flatulence. 30 tablet 06/01/20 24 Active Additional Information Patient not taking.Reported on 06/18/2024 Norgestimate-Eth Estradiol (FLORENTINO PO) Take by mouth. 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 05/22/2024 Obesity with body mass index 30 or greater 04/08 Ovarian cyst 04/08/2024 Ovarian tumor of borderline malignancy, left 03/2024 Immunizations Immunization Administration Dates Next Due DTaP, Unspecified 04/10/2001,04/25/2000,02/26/20 00 HPV 9-Valent 03/14/2018,12/30/2017 Hep A, Adult 12/30/2017 Hep A, ped/adol, 2 dose 07/11/2018 Hib (PRP-OMP) 02/26/2000 Hib / Hep B 10/03/2000 IPV 07/31/2000,02/26/2000 MMR 04/10/2001 Pneumococcal Conjugate PCV 7 10/03/2000,07/31/19 01 Tdap 12/28/2020 Varicella 10/03/2000 Family History Medical History Relation Name Comments Clotting disorder Maternal Grandfather Bleeding disorder Maternal Grandmother Breast cancer Maternal Great-Grandmother Lung cancer Maternal Great-Grandmother Ovarian cancer Maternal Great-Grandmother Ovarian cancer Other Anesthesia problems Neg Hx Malig Hyperthermia Neg Hx Relation Name Status Comments Maternal Grandfather Maternal Grandmother Maternal Great-Grandmother Other Social History Tobacco Use Types Packs/Day Years Used Date Smoking Tobacco: Never Passive Smoke Exposure: Never Smokeless Tobacco: Never Tobacco Cessation:Counseling Given: Not Answered Alcohol Use Standard Drinks/Week Comments Never 0 (1 standard drink = 0.6 oz pur e alcohol) PHQ-2 Answer Date Recorded Patient Health Questionnaire-2 Score 0 10/01/2024 Comments No Sex and Gender Information Value Date Recorded Sex Assigned at Not on file Legal Sex Female 7:15 PM EDT Gender Identity Not on file Sexual Orientation Not on file Last Filed Vital Signs Vital Sign Reading Time Taken Comments Blood Pressure 138/92 10/01/2024 3:01 PM EDT Pulse 105 10/01/2024 3:01 PM EDT Temperature 36.9 C (98.4 F) 10/01/2024 3:01 PM EDT Respiratory Rate 18 10/01/2024 3:01 PM EDT Oxygen Saturation 96% 10/01/2024 3:01 PM EDT Inhaled Oxygen Concentration - - Weight 114 kg (250 lb 12.8 oz) 10/01/2024 3:01 P M EDT Height 165.1 cm (5' 5 ) 06/18/2024 12:29 PM EST Body Mass Index 41.74 06/18/2024 12:29 PM EST Plan of Treatment Upcoming Encounters Date Type Department Care Team (Late st Contact Info) Description 04/22/2025 12:30 PM EDT Ancillary Procedure [facility] [address] [place] [address] 04/22/2025 1:00 PM EDT Office Visit [facility] [address] [place] [address] Charito Young MD [address] [place] [address] Health Maintenance Due Date Last Done Comments [facility]-HIV Screening 1999 [facility]-Hepatitis C Screening 1999 [facility]-/Child/Adol SDOH Screenings 1999 [facility]-Hepatitis B Vaccines (2 of 3 - 3-dose series) 10/31/2000 10/03/2000 [facility]-IPV Vaccines (3 of 3 - 4-dose series) 2003 07/31/2000, 02/26/2000 [facility]-Varicella Vaccines (2 of 2 - 2-dose childhood series) 2003 10/03/2000 [facility]-Obesity Intervention 10/01/2005 [facility]- SDOH Screenings 10/01/2017 [facility]-Adult SDOH Screenings 10/01/2017 HPV Vaccines (3 - Risk 3-dose series) 07/14/2018 03/14/2018, 12/30/2017 [facility]-Pneumococcal Vaccine: Pediatrics (0 to 5 Years) and At-Risk Patients (6 to 49 Years) (1 of 2 - PCV) 10/01/2018 10/03/2000, 07/31/2000 [facility]-Zoster Vaccines (1 of 2) 10/01/2018 10/03/2000 [facility]-Pap Smear 10/01/2020 [id number] Vaccine ( - season) 2024 05/05/2021, 09/28/2020, 08/31/2020 [facility]-Influenza Vaccine (#1) 2025 [facility]-Depression Screening 10/01/2025 10/01/2024 [facility]-DTaP,Tdap,and Td Vaccines (5 - Td or Tdap) 12/28/2030 12/28/2020, 04/10/2001, 04/25/2000, Additional history exists [facility]-HIB Vaccines Aged Out 10/03/2000, 02/26/2000 N o longer eligible based on patient's age to complete this topic [facility]-Hepatitis A Vaccines Completed 07/11/2018, 08/2017 [facility]-Rotavirus Vaccines Aged Out No lo nger eligible based on patient's age to complete this topic Insurance [facility] Care Teams Chartered Financial Analyst Relationship Specialty Start Date End Date Francisco Ozuna MD [address] [place] [address] PCP - General 11/11/20 Serina Draper DO [address] [place] [address] Referring Physician Obstetrics and Gynecology 04/07/24
--- OUTSIDE RECORDS SUMMARY | 2025-01-12 15:32 | XMS_ITS | Encounter Summary ---
Author Organization Healthcare Address [address] [place] [address] Care Team Providers Care Developer Prover Upholstering Name Role Phone Francisco Ozuna MD Primary Care Provider [phone] Serina Draper DO Unavailable [phone] Encounter Details Date Type Department Care Team (Late Contact Info) Description 04/13/2024 Lab Requisition [facility] [address] [place] [address] Pedro Pablo Butler MD [address] [facility] [address] [place] [address] Unspecified ovarian cyst, left side [...] [address] [place] [address] 04/22/2025 1:00 PM EDT Office Visit [facility] [address] [place] [address] Charito Young MD [address] [facility] [address] [place] [address] documented as of this encounter Procedures Procedure Name Priority Date/Time Associated Diagnosis Comments SURGICAL PATHOLOGY CONSULT Routine 04/13/2024 1:54 PM EDT Unspecified ovarian cyst, left side documented in this encounter Results * Surgical Pathology Consult (04/13/2024 1:54 PM EDT) Case Report Sugical Pathology Consult Case: [id number] Authorizing Provider: Pedro Pablo Butler MD Collected: 04/13/2024 [facility] Ordering Location: [facility] Lab Received: 04/13/2024 [facility] Pathologist: Charisse Hernández MD Specimen: Ovary, Left, [id number] 04/21/2024 2:21 PM EDT [facility] Final Diagnosis A. OVARY, LEFT, CYSTECTOMY (OUTSIDE SLIDES [id number], 03/26/24): - FRAGMENTS OF SEROUS BORDERLINE TUMOR (SEE COMMENT) 04/21/2024 2:21 PM EDT [facility] at 1421 EDT Comment This case was sent by the outside pathologist to Dr. Raul Goldman for expert consultation. His interpretation agrees with the above diagnosis. Clinical and radiographic correlation is suggested. 04/21/2024 2:21 PM EDT [facility] Clinical Information N83.202 - Unspecified ovarian cyst, left side [ICD-10-CM] 04/21/2024 2:21 PM EDT [facility] Gross Description A. [id number] Received along with a corresponding pathology report from [facility] are 7 slides labeled outside case: [id number] collected on 03/26/2024. 04/21/2024 2:21 PM EDT [facility] Note: A resident was involved in the service. I attest I examined the relevant preparations for the specimens and confirmed the diagnosis or interpretation. 04/21/2024 2:21 PM EDT [facility] Tissue Structure of left ovary / Unknown 04/13/2024 1:54 PM EDT 04/13/2024 1:54 PM EDT us Pedro Pablo Butler MD LAB PATHOLOGY ORDERABLES F inal Result [facility] [address] [place] [address] documented in this encounter Visit Diagnoses Diagnosis Unspecified ovarian cyst, left side documented in this encounter Additional Health Concerns Assessment Noted Time A fall risk assessment has been complete d for the patient 04/09/2024 11:21 AM EDT documented as of this encounter Care Teams Developer Prover Upholstering Relationship Specialty Start Date End Date Francisco Ozuna MD [address] [place] [address] PCP - General 11/11/20 Serina Draper DO [address] [place], [place] [address] Referring Physician Obstetrics and Gynecology 04/07/24 documented as of this encounter
== END 2025-01-12 23:59 | disposition home or self-care (01) ==
LOC: RAD 15:30
PROVIDERS: PCP Internal Medicine Adolescent Medicine; Visit Provider Obstetrics & Gynecology
DX: N85.4 Malposition of uterus (principal); N83.01 Follicular cyst of right ovary; Z90.721 Acquired absence of ovaries, unilateral; Z30.431 Encounter for routine checking of intrauterine contraceptive device
CPT/HCPCS: 76830

== ENCOUNTER 2025-02-23 12:35 | Outpatient (CLI) | payer BC, SELFPAY ==
--- OUTSIDE RECORDS SUMMARY | 2025-02-23 12:37 | XMS_ITS | Clinical Summary ---
Author Organization [facility] Address [address] [place] [address] Care Team Providers Care Referral Management Liaison Name Role Phone Francisco Ozuna MD Primary Care Provider [phone] Allergies No known active allergies Medications buPROPion XL (WELLBUTRIN XL) 150 MG 24 hr tablet Take 1 tablet by mouth Every Morning. Active multivitamin with minerals tablet tablet Take 1 tablet by mouth Daily. Active ondansetron ODT (ZOFRAN-ODT) [address] 1 tablet on the tongue Every 6 (Six) Hours As Needed for Nausea or Vomiting. Active oxyCODONE-acetamino phen (PERCOCET) 5-325 MG per tablet Take 1 tablet by mouth Every 4 (Four) Hours As Needed for Moderate Pain. Active amoxicillin-clavula jigar (AUGMENTIN) 875-125 MG per tablet Take 1 tablet by mouth 2 (Two) Times a Day. 10 tablet 4 Active Active Problems Problem Noted Date Diagnosed Date Abnormal transaminases 09/28/2023 Hyperbilirubinemia 09/28/2023 Resolved Problems Problem Noted Date Diagnosed Date Resolved Date Choledocholithiasis 09/28/2023 09/30/19 24 Social History Tobacco Use Types Packs/Day Years Used Date Smoking Tobacco: Never Alcohol Use Standard Drinks/Week Comments Never 0 (1 standard drink = 0.6 oz pur e alcohol) AUDIT-C Answer Date Recorded Q1: How often do you have a drink containing alcohol? Never 09/28/2023 Q2: How many drinks containi ng alcohol do you have on a typical day when you are drinking? Patient does not drink Q3: How often do you have si x or more drinks on one occasion? Never 09/28/2023 Abuse Screen Answer Date Recorded Feels Unsafe at Home or Work/School no 09/28/2023 Feels Threatened by Someone no 08/31 Does Anyone Try to Keep You From Having Contact with Others or Doing Things Outside Your Home? no 09/28/2023 Physical Signs of Abuse Present no 09/28/2023 Housing Stability Answer Date Recorded Current Living Arrangements home 08/31 Potentially Unsafe Housing Conditions Not on enrique e 09/28/2023 Family and Community Support Answer Girish e Recorded Help with Day-to-Day Activities Not on file 04/11/2023 Lonely or Isolated Not on file 04/11/2023 Employment Answer Date Recorded Do you want help finding or keeping work or a beltran b? Not on file 04/11/2023 Disabilities Answer Date Recorded Difficulty Concentrating, Remembering or Making Decisions no 09/28/2023 Difficulty Managing Errands Independently no 09/28/2023 Education Answer Date Recorded Help with school or training? Not on file Preferred Language Not on file 04/11/2023 Comments No Sex and Gender Information Value Date Recorded Sex Assigned at Not on file Legal Sex Female 12:36 PM EST Gender Identity Not on file Sexual Orientation Not on file Last Filed Vital Signs Vital Sign Reading Time Taken Comments Blood Pressure 108/59 09/30/2023 3:00 AM EDT Pulse 78 09/30/2023 3:00 AM EDT Temperature 36.6 C (97.8 F) 09/30/2023 3:00 AM EDT Respiratory Rate 20 09/30/2023 3:00 AM EDT Oxygen Saturation 95% 09/30/2023 3:00 AM EDT Inhaled Oxygen Concentration - - Weight 102 kg (224 lb 13.9 oz) 09/29/2023 11:22 AM EDT Height 165.1 cm (5' 5 ) 09/29/2023 11:22 AM EDT Body Mass Index 37.42 09/29/2023 11:22 AM EDT Plan of Treatment Health Maintenance Due Date Last Done Comments ANNUAL PHYSICAL 1999 Annual Gynecologic Pelvic an d Breast Exam 1999 HEPATITIS C SCREENING 1999 HPV VACCINES (3 - 3-dose series) 07/02/2018 03/14/2018, 12/30/2017 COVID-19 Vaccine ( - 2023-2 5 season) 2024 05/05/2021, 09/28/2020, 08/31/2020 INFLUENZA VACCINE 03/31/2025 TDAP/TD VACCINES (2 - Td or Tdap) 12/28/2030 12/28/2020 Pneumococcal Vaccine 0-49 Aged Out 2000, 07/31/2000 No longer eligible based on patient's age to complete this topic Medical Devices Implanted Type Area Lvn Lpn Device Identifier Shelf Expiration Date Model / Serial / Lot Clipapplr M/ Endo Ligaclip Rot 10mm /[place] - [id number] Implanted:Qty : 1 on 09/29/2023 by Matt Yap MD at [facility] Implant N/A: Abdomen [employer] [id number] 07/31/2028 [id number] / / [id number] Insurance [facility] Advance Directives * CPR (Attempt to Resuscitate) (Latest Code Status on File) Date Activated Date Inactivated Comments 09/29/2023 3:11 PM 09/30/2023 2:25 PM Question Answer Comments Code Status (Patient has no pulse and is not breathing): CPR (Attempt to Resuscitate) Medical Interventions (Patie nt has pulse or is breathing): Full Level Of Support Discussed With: Patient * CPR (Attempt to Resuscitate) Date Activated Date Inactivated Comments 09/28/2023 2:44 PM 09/29/2023 3:11 PM Question Answer Comments Code Status (Patient has no pulse and is not breathing): CPR (Attempt to Resuscitate) Medical Interventions (Patie nt has pulse or is breathing): Full Support Level Of Support Discussed With: Patient Care Teams Referral Management Liaison Relationship Specialty Start Date End Date Francisco Ozuna MD [facility] [place] [address] PCP - General Adolescent Medicine 09/28/23
--- OUTSIDE RECORDS SUMMARY | 2025-02-23 12:37 | XMS_ITS | Encounter Summary ---
Author Organization Healthcare Address [address] [place] [address] Care Team Providers Care Clay Processing Factory Worker Name Role Phone Francisco Ozuna MD Primary Care Provider [phone] Serina Draper DO Unavailable [phone] Encounter Details Date Type Department Care Team (Late Contact Info) Description 04/13/2024 Lab Requisition [facility] [address] [place] [address] Pedro Pablo Butler MD [address] [facility] [address] [place] [address] Unspecified ovarian cyst, left side [...] [address] [place] [address] 04/22/2025 1:00 PM EDT Office Visit [facility] [address] [place] [address] Charito Young MD [address] [facility] [address] [place] [address] documented as of this encounter Procedures Procedure Name Priority Date/Time Associated Diagnosis Comments SURGICAL PATHOLOGY CONSULT Routine 04/13/2024 1:54 PM EDT Unspecified ovarian cyst, left side documented in this encounter Results * Surgical Pathology Consult (04/13/2024 1:54 PM EDT) Case Report Sugical Pathology Consult Case: [id number] Authorizing Provider: Pedro Pablo Butler MD Collected: 04/13/2024 [facility] Ordering Location: [facility] Lab Received: 04/13/2024 [facility] Pathologist: Charisse Hernández MD Specimen: Ovary, Left, [id number] 04/21/2024 2:21 PM EDT [facility] Final Diagnosis A. OVARY, LEFT, CYSTECTOMY (OUTSIDE SLIDES [id number], 03/26/24): - FRAGMENTS OF SEROUS BORDERLINE TUMOR (SEE COMMENT) 04/21/2024 2:21 PM EDT [facility] at 1421 EDT Comment This case was sent by the outside pathologist to Dr. Raul Goldman for expert consultation. His interpretation agrees with the above diagnosis. Clinical and radiographic correlation is suggested. 04/21/2024 2:21 PM EDT [facility] Clinical Information N83.202 - Unspecified ovarian cyst, left side [ICD-10-CM] 04/21/2024 2:21 PM EDT [facility] Gross Description A. [id number] Received along with a corresponding pathology report from [facility] are 7 slides labeled outside case: [id number] collected on 03/26/2024. 04/21/2024 2:21 PM EDT [facility] Note: A resident was involved in the service. I attest I examined the relevant preparations for the specimens and confirmed the diagnosis or interpretation. 04/21/2024 2:21 PM EDT [facility] Tissue Structure of left ovary / Unknown 04/13/2024 1:54 PM EDT 04/13/2024 1:54 PM EDT us Pedro Pablo Butler MD LAB PATHOLOGY ORDERABLES F inal Result [facility] [address] [place] [address] documented in this encounter Visit Diagnoses Diagnosis Unspecified ovarian cyst, left side documented in this encounter Additional Health Concerns Assessment Noted Time A fall risk assessment has been complete d for the patient 04/09/2024 11:21 AM EDT documented as of this encounter Care Teams Clay Processing Factory Worker Relationship Specialty Start Date End Date Francisco Ozuna MD [address] [place] [address] PCP - General 11/11/20 Serina Draper DO [address] [place], [place] [address] Referring Physician Obstetrics and Gynecology 04/07/24 documented as of this encounter
--- OUTSIDE RECORDS SUMMARY | 2025-02-23 12:37 | XMS_ITS | Clinical Summary ---
Author Organization [facility] Address [address] [place] [address] Care Team Providers Care Binder Stripper Hand Name Role Phone Francisco Ozuna MD Primary Care Provider [phone] Bonny Serina Gaby DO Unavailable [phone] Allergies No known active allergies Medications buPROPion [...] [address] [place] [address] 04/22/2025 1:00 PM EDT Office Visit [facility] [address] [place] [address] Charito Young MD [address] [place] [address] Health Maintenance Due Date Last Done Comments [facility]-HIV Screening 1999 [facility]-Hepatitis C Screening 1999 [facility]-Infant/Child/Adol SDOH Screenings 1999 [facility]-Hepatitis B Vaccines (2 [...] of 2) 10/01/2018 10/03/2000 [facility]-Pap Smear 10/01/2020 [id number] Vaccine ( - season) 2024 05/05/2021, 09/28/2020, [...] patient's age to complete this topic Insurance [facility] Care Teams Binder Stripper Hand Relationship Specialty Start Date End Date Francisco Ozuna MD [address] [place] [address] PCP - General 11/11/20 Serina Draper DO [address] [place] [address] Referring Physician Obstetrics and Gynecology 04/07/24
--- OUTSIDE RECORDS SUMMARY | 2025-02-23 12:37 | XMS_ITS | Encounter Summary ---
Author Organization Healthcare Address [address] [place] [address] Care Team Providers Care Account Representative Name Role Phone Francisco Ozuna MD Primary Care Provider [phone] Serina Draper DO Unavailable [phone] Encounter Details Date Type Department Care Team (Late Contact Info) Description 04/13/2024 Lab Requisition [facility] [address] [place] [phone] Pedro Pablo Butler MD [address] [facility] [address] [place] [address] Unspecified ovarian cyst, left side [...] [address] [place] [address] 04/22/2025 1:00 PM EDT Office Visit [facility] [address] [place] [address] Charito Young MD [address] [facility] [address] [place] [address] documented as of this encounter Procedures Procedure Name Priority Date/Time Associated Diagnosis Comments CYTOLOGY CONSULT 04/13/2024 2:08 PM EDT Unspecified ovarian cyst, left side documented in this encounter Results * Cytology Consult (04/13/2024 2:08 PM EDT) Case Report Cytology Case: [id number] Authorizing Provider: Pedro Pablo Butler MD Collected: 04/13/20241407 Ordering Location: [facility] Lab Received: 04/13/2024 1402 Pathologist: Doris Sellers MD Specimen: Ovary, Left, [id number] 04/14/2024 5:12 PM EDT [facility] Final Diagnosis A. LEFT OVARIAN CYST FLUID (OUTSIDE CASE [id number]; DOS 03/26/2024): - FRAGMENT OF LOW GRADE SEROUS NEOPLASM, SEE COMMENT 04/14/2024 5:12 PM EDT [facility] at 1711 EDT Comment The cell block demonstrates papillary fronds lined by serous type epithelium with low grade nuclear features. The differential diagnosis would include a serous borderline tumor as well as other low grade serous neoplasms. Correlation with the corresponding surgical specimen is recommended. 04/14/2024 5:12 PM EDT [facility] Clinical Information N83.202 - Unspecified ovarian cyst, left side [ICD-10-CM] 04/14/2024 5:12 PM EDT [facility] Gross Description A. [id number] Received along with a corresponding pathology report from [facility] are 2 slides labeled outside case: [id number] collected on 03/26/2024. 04/14/2024 5:12 PM EDT [facility] Structure of left ovary / Unknown 04/13/2024 2:08 PM EDT 04/13/2024 2:08 PM EDT us Pedro Pablo Butler MD LAB PATHOLOGY ORDERABLES F inal Result [facility] [address] [place] [address] documented in this encounter Visit Diagnoses Diagnosis Unspecified ovarian cyst, left side documented in this encounter Additional Health Concerns Assessment Noted Time A fall risk assessment has been complete d for the patient 04/09/2024 11:21 AM EDT documented as of this encounter Care Teams Account Representative Relationship Specialty Start Date End Date Francisco Ozuna MD [address] [place] [address] PCP - General 11/11/20 Serina Draper DO [address] [place] [address] Referring Physician Obstetrics and Gynecology 04/07/24 documented as of this encounter
--- NOTE | 2025-02-23 13:00 | US_ITS ---
PROCEDURE: US TRANSVAGINAL CLINICAL INDICATION: IUD check up COMPARISON: US US TRANSVAGINAL from 02/14/2024 US US TRANSVAGINAL from 01/12/2025 FINDINGS: Transvaginal sonographic images of the pelvis were obtained. UTERUS: 8.0cm x 6cmx 4.8 cm retroverted with a combined endometrial thickness of 2.8mm. There is an IUD within the uterine cavity in the correct position. There is a 1.2 cm nabothian cyst in the cervix. LEFT OVARY: Surgically absent RIGHT OVARY: 6.1cmx 4.7 cmx3.9 cm with a volume of 58.4ml. There are multiple small peripheral follicles giving the ovary a polycystic appearance. There is a dominant follicle measuring 2.7 cm x 2.8 cm x 3.1 cm. The right ovary is seen and appears polycystic. Doppler flow to right ovary is seen. There is no fluid in the cul-de-sac. IMPRESSION: 1. Retroverted uterus normal in shape and size. The endometrium is thin measuring 2.8 mm. 2. There is an IUD within the uterine cavity in the correct position. 3. Left ovary is surgically absent. The right ovary is enlarged and appears polycystic. The right ovary contains a follicle measuring 3.1 cm. This follicle is smaller than seen on a previous ultrasound January 12, 2025. 4. No fluid in the cul-de-sac. Dictated by: Rico Hernandez MD 02/23/2025 18:10 Rico Hernandez MD in OV 02/23/2025 18:10
== END 2025-02-23 23:59 | disposition home or self-care (01) ==
LOC: RAD 12:36
PROVIDERS: PCP Internal Medicine Adolescent Medicine; Visit Provider Obstetrics & Gynecology
DX: E28.2 Polycystic ovarian syndrome (principal); N85.4 Malposition of uterus; Z30.431 Encounter for routine checking of intrauterine contraceptive device; Z90.721 Acquired absence of ovaries, unilateral
CPT/HCPCS: 76830

== ENCOUNTER 2025-03-05 15:40 | Outpatient (CLI) | payer BC, SELFPAY ==
--- OUTSIDE RECORDS SUMMARY | 2025-03-05 15:42 | XMS_ITS | Encounter Summary ---
Author Organization Healthcare Address [address] [place] [address] Care Team Providers Care Study Coordinator Name Role Phone Francisco Ozuna MD Primary Care Provider [phone] Serina Draper DO Unavailable [phone] Encounter Details Date Type Department Care Team (Late Contact Info) Description 04/13/2024 Lab Requisition [facility] [address] [place] [phone] Pedro Pablo Butler MD [address] [facility] [address] [place] [address] Unspecified ovarian cyst, left side [...] [address] [place] [address] 04/22/2025 1:00 PM EDT Office Visit [facility] [address] [place] [address] Charito Young MD [address] [place] [facility] [address] [place] [address] documented as of this encounter Procedures Procedure Name Priority Date/Time Associated Diagnosis Comments CYTOLOGY CONSULT 04/13/2024 2:08 PM EDT Unspecified ovarian cyst, left side documented in this encounter Results * Cytology Consult (04/13/2024 2:08 PM EDT) Case Report Cytology Case: [id number] Authorizing Provider: Pedro Pablo Butler MD Collected: 04/13/20241407 Ordering Location: [facility] Lab Received: 04/13/2024 1401 Pathologist: Doris Sellers MD Specimen: Ovary, Left, [id number] 04/14/2024 5:12 PM EDT [facility] Final Diagnosis A. LEFT OVARIAN CYST FLUID (OUTSIDE CASE [id number]; DOS 03/26/2024): - FRAGMENT OF LOW GRADE SEROUS NEOPLASM, SEE COMMENT 04/14/2024 5:12 PM EDT [facility] at 1711 EDT Comment The cell block demonstrates papillary fronds lined by serous type epithelium with low grade nuclear features. The differential diagnosis would include a serous borderline tumor as well as other low grade serous neoplasms. Correlation with the corresponding surgical specimen is recommended. 04/14/2024 5:12 PM EDT [facility] Clinical Information N83.202 - Unspecified ovarian cyst, left side [ICD-10-CM] 04/14/2024 5:12 PM EDT [facility] Gross Description A. [id number] Received along with a corresponding pathology report from [facility] are 2 slides labeled outside case: [id number] collected on 03/26/2024. 04/14/2024 5:12 PM EDT [facility] Structure of left ovary / Unknown 04/13/2024 2:08 PM EDT 04/13/2024 2:08 PM EDT us Pedro Pablo Butler MD LAB PATHOLOGY ORDERABLES F inal Result [facility] [address] [place] [address] documented in this encounter Visit Diagnoses Diagnosis Unspecified ovarian cyst, left side documented in this encounter Additional Health Concerns Assessment Noted Time A fall risk assessment has been complete d for the patient 04/09/2024 11:21 AM EDT documented as of this encounter Care Teams Study Coordinator Relationship Specialty Start Date End Date Francisco Ozuna MD [address] [place] [address] PCP - General 11/11/20 Serina Draper DO [address] [place] [address] Referring Physician Obstetrics and Gynecology 04/07/24 documented as of this encounter
--- OUTSIDE RECORDS SUMMARY | 2025-03-05 15:42 | XMS_ITS | Clinical Summary ---
Author Organization [facility] Address [address] [place] [address] Care Team Providers Care Inside Sales Account Manager Name Role Phone Francisco Ozuna MD Primary Care Provider [phone] Allergies No known active allergies Medications buPROPion [...] this topic Medical Devices Implanted Type [employer] Teacher Device Identifier Shelf Expiration Date Model / Serial / Lot Clipapplr M/ Endo Ligaclip Rot 10mm /[employer] - [id number] Implanted:Qty : 1 on 09/29/2023 by Matt Yap MD at [facility] Implant N/A: Abdomen [employer] [employer] [facility] [employer] [facility] [employer] [facility] [id number] 07/31/2028 [id number] / / [id number] Insurance [facility] Advance Directives * CPR (Attempt to Resuscitate) [...] Of Support Discussed With: Patient Care Teams Inside Sales Account Manager Relationship Specialty Start Date End Date Francisco Ozuna MD [facility] [place] [place] [address] PCP - General Adolescent Medicine 09/28/23
--- OUTSIDE RECORDS SUMMARY | 2025-03-05 15:42 | XMS_ITS | Clinical Summary ---
Author Organization [facility] Address [address] [address] Care Team Providers Care Reservations Agent Name Role Phone Francisco Ozuna MD Primary Care Provider [phone] Bonny Serina Gaby DO Unavailable [phone] Allergies No known active allergies Medications buPROPion [...] [address] [place] [address] 04/22/2025 1:00 PM EDT Office Visit [facility] [address] [place] [address] Charito Young MD [address] [place] [address] Health Maintenance Due Date Last Done Comments [...] of 2) 10/01/2018 10/03/2000 UKY-Pap Smear 10/01/2020 [id number] Vaccine ( - season) 2024 05/05/2021, 09/28/2020, [...] patient's age to complete this topic Insurance [facility] Care Teams Reservations Agent Relationship Specialty Start Date End Date Francisco Ozuna MD [address] [place] [address] PCP - General 11/11/20 Serina Draper DO [address] [place] [address] Referring Physician Obstetrics and Gynecology 04/07/24
--- OUTSIDE RECORDS SUMMARY | 2025-03-05 15:42 | XMS_ITS | Encounter Summary ---
Author Organization Healthcare Address [address] [place] [address] Care Team Providers Care Healthcare Prof Name Role Phone Francisco Ozuna MD Primary Care Provider [phone] Serina Draper DO Unavailable [phone] Encounter Details Date Type Department Care Team (Late Contact Info) Description 04/13/2024 Lab Requisition [facility] [address] [place] [address] Pedro Pablo Butler MD [address] [facility] [address] [place] [address] Unspecified ovarian cyst, left side [...] [address] [place] [address] 04/22/2025 1:00 PM EDT Office Visit [facility] [address] [place] [address] Charito Young MD [address] [facility] [address] [place] [address] documented as of this encounter Procedures Procedure Name Priority Date/Time Associated Diagnosis Comments SURGICAL PATHOLOGY CONSULT Routine 04/13/2024 1:54 PM EDT Unspecified ovarian cyst, left side documented in this encounter Results * Surgical Pathology Consult (04/13/2024 1:54 PM EDT) Case Report Sugical Pathology Consult Case: [id number] Authorizing Provider: Pedro Pablo Butler MD Collected: 04/13/2024 [facility] Ordering Location: [facility] Lab Received: 04/13/2024 [facility] Pathologist: Charisse Hernández MD Specimen: Ovary, Left, [id number] 04/21/2024 2:21 PM EDT [facility] Final Diagnosis A. OVARY, LEFT, CYSTECTOMY (OUTSIDE SLIDES [id number], 03/26/24): - FRAGMENTS OF SEROUS BORDERLINE TUMOR (SEE COMMENT) 04/21/2024 2:21 PM EDT [facility] at 1421 EDT Comment This case was sent by the outside pathologist to Dr. Raul Goldman for expert consultation. His interpretation agrees with the above diagnosis. Clinical and radiographic correlation is suggested. 04/21/2024 2:21 PM EDT [facility] Clinical Information N83.202 - Unspecified ovarian cyst, left side [ICD-10-CM] 04/21/2024 2:21 PM EDT [facility] Gross Description A. [id number] Received along with a corresponding pathology report from [facility] Laboratory are 7 slides labeled outside case: [id number] collected on 03/26/2024. 04/21/2024 2:21 PM EDT [facility] Note: A resident was involved in the service. I attest I examined the relevant preparations for the specimens and confirmed the diagnosis or interpretation. 04/21/2024 2:21 PM EDT [facility] Tissue Structure of left ovary / Unknown 04/13/2024 1:54 PM EDT 04/13/2024 1:54 PM EDT us Pedro Pablo Butler MD LAB PATHOLOGY ORDERABLES F inal Result [facility] [address] [place] [address] documented in this encounter Visit Diagnoses Diagnosis Unspecified ovarian cyst, left side documented in this encounter Additional Health Concerns Assessment Noted Time A fall risk assessment has been complete d for the patient 04/09/2024 11:21 AM EDT documented as of this encounter Care Teams Healthcare Prof Relationship Specialty Start Date End Date Francisco Ozuna MD [address] [place] [address] PCP - General 11/11/20 Serina Draper DO [address] [place], [place] [address] Referring Physician Obstetrics and Gynecology 04/07/24 documented as of this encounter
--- NOTE | 2025-03-05 16:00 | US_ITS ---
PROCEDURE: US TRANSVAGINAL CLINICAL INDICATION: f/u for ovarian cyst COMPARISON: CT CT ABDOMEN PELVIS W CON from 09/27/2023 US US TRANSVAGINAL from 02/14/2024 US US TRANSVAGINAL from 01/12/2025 US US TRANSVAGINAL from 02/23/2025 FINDINGS: Transvaginal sonographic images of the pelvis were obtained. UTERUS: 7.8cm x 5.8 cmx 5.3cm retroverted with a combined endometrial thickness of 8.6mm. There is an IUD within the uterine cavity in the correct position. LEFT OVARY: The left ovary is surgically absent. RIGHT OVARY: 4.3cmx 3.3cmx3.3cm with a volume of 24.1ml. Follicle 1. 1.9 cm x 2.1 cm x 2.0 cm. Follicle 2. 2.0 cm x 2.4 cm x 2.1 cm. There are multiple small peripheral follicles. The right ovary is seen and appears polycystic. Doppler flow to the right ovary is seen. There is no fluid in the cul-de-sac. IMPRESSION: 1. Retroverted uterus normal in shape and size. The endometrium is normal. 2. There is an IUD within the uterine cavity in the correct position. 3. The left ovary is surgically absent. 4. The right ovary contains 2 follicles measuring 2.1 cm and 2.4 cm. There are multiple small peripheral follicles giving the ovary a polycystic appearance. The right ovary is smaller in size and now normal in size since her last ultrasound. 5. No fluid in the cul-de-sac. Dictated by: Rico Hernandez MD 03/06/2025 07:18 Rico Hernandez MD in OV 03/06/2025 07:18
== END 2025-03-05 23:59 | disposition home or self-care (01) ==
LOC: RAD 15:41
PROVIDERS: PCP Internal Medicine Adolescent Medicine; Visit Provider Obstetrics & Gynecology
DX: N83.01 Follicular cyst of right ovary (principal); N85.4 Malposition of uterus; D39.10 Neoplasm of uncertain behavior of unspecified ovary; Z97.5 Presence of (intrauterine) contraceptive device; Z90.721 Acquired absence of ovaries, unilateral
CPT/HCPCS: 76830